=== PATIENT | female | born 1950 ===

== ENCOUNTER → 2021-10-30 00:28 | Outpatient (CLI) | payer MEDICARE, MEDICAID, SELFPAY ==
--- OUTSIDE RECORDS SUMMARY | 2021-10-30 00:30 | XMS_ITS | Encounter Summary ---
:1950 Author Organization [facility] Address [address] [place] [address] Care Team Providers Name Role Phone Nancy Clemente APRN Primary Care Provider Encounter Details Date Type Department Care Team Description 07/22/2021 TH Visit Neurosurgery at [facility] Get Lindo, Median nerve (TeleHealth) [facility] [place] neuropathy, Blanche [facility] [place] [address] mcginnis [phone] [place]ERY [place] [address] Social History Tobacco Use Types Packs/Day Years Used Date Former Smoker 1.5 30 Quit: 2004 Smokeless Tobacco: Never Used Alcohol Use Standard Drinks/Week Comments Yes 3 (1 standard drink = 0.6 oz pure alcoho l) 3 beers a week Alcohol Habits Answer Date Recorded How often do you have a drink containing alcohol? Not asked How many drinks containing alcohol do you have on a Not aske d typical day when you are drinking? How often do you have six or more drinks on one Not asked occasion? Comment: 3 beers a week 06/03/2021 Sex Assigned at Date Recorded Not on file documented as of this encounter Progress Notes Get Lindo APRN - 07/22/2021 11:00 AM EDT Name: Selin Dong : 1950 PCP: Nancy Clemente APRN REF: Nancy Clemente Date of Service: 07/22/2021 Telephone Office Visit CHIEF COMPLAINT: BUE R>L paraesthesias HISTORY: Selin Dong is a 70yof that presents today for follow up regarding her EM[facility] results. [facility] was [facility]. I spoke with Ms. Dong over the phone today to discuss the results of her EMG. Symptoms appear mostconsistent with carpal tunnel syndrome. She denies new symptoms from previous visit. IMAGING & OTHER RESULTS: EMG 07/10/21 IMPRESSION: MILDLY ABNORMAL STUDY. 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 NO EVIDENCE OF RIGHT CERVICAL RADICULOPATHY. NOTE: THERE IS ELECTRODIAGNOSTIC EVIDENCE OF [place] ANASTOMOSIS BILATERALLY. ASSESSMENT: This is a 70yof that presents with b/l arms numbness and sensation of falling asleep at nighttime. She has been using pregabalin which has helped with some of the pain but it is still occurring every night. 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 PLAN: I recommend structured bilateral wrists braces for bedtime. She should try this for 2-3 weeks every night and if she is still experiencing discomfort I would recommend either a pain clinic or orthopedic to trial steroid injections. Patient verbally consents to this telephone visit and understands that this visit may be billed, similar to a clinic office visit. I provided care to the patient today via telephone call. The total time associated with this visit was 20 minutes. Get Lindo APRN Nurse Practitioner [place] [address] documented in this encounter Plan of Treatment Not on filedocumented as of this encounter Visit Diagnoses Diagnosis Median nerve neuropathy, unspecified lat erality documented in this encounter Care Teams Basket Filler Relationship Specialty Start Date End Date Nancy Clemente APRN PCP - General Family Medicine 05/15/21 [address] [place] [address] documented as of this encounter
--- OUTSIDE RECORDS SUMMARY | 2021-10-30 00:30 | XMS_ITS | Encounter Summary ---
:1950 Author Organization [facility] [place] [address] Care Team Providers Name Role Phone Nancy Clemente APRN Primary Care Provider Encounter Details Date Type Department Care Team Description 07/14/2021 External Results Neurodiagnostic at [facility] Jason Dupree [facility] [place] [address] [facility] [phone] [place] [address] (Wo rk) Social History Tobacco Use Types Packs/Day Years [...] on file documented as of this encounter Plan of Treatment Not on filedocumented as of this encounter Procedures Procedure Name Priority Date/Time Associated Diagnosis Comme nts EMG WITH F-WAVE Routine 07/10/2021 documented in this encounter Results EMG WITH F-WAVE (07/10/2021) Narrative This result has an attachment that is no t available. Jason Dupree MD NEUROLOGY ORDERABLES documented in this encounter Visit Diagnoses Not on filedocumented in this encounter Care Teams Product Development Relationship Specialty Start Date End Date Nancy Clemente APRN PCP - General Family Medicine 05/15/21 [address] [place] [address] documented as of this encounter
--- OUTSIDE RECORDS SUMMARY | 2021-10-30 00:30 | XMS_ITS | Encounter Summary ---
:1950 Author Organization [facility] [place] [address] Care Team Providers Name Role Phone Nancy Clemente CURRICULUM ADVISORY TEACHER Primary Care Provider Reason for Visit Consultation (Routine) - Closed Specialty Diagnoses / Procedures Referred By Contact Refer red To Contact Neurology Diagnoses Spinal stenosis, cervical region please eval and consider bilateral upper extremity EMG testing Eric Fitzpatrick, [facility] Neurology 3c CURRICULUM ADVISORY TEACHER [address] [address] [place] [address] Referral ID Status Reason Start Date Expiration Date Visits Requ ested Visits Authorized [id number] Closed 05/04/2021 05/04/2022 1 1 Encounter Details Date Type Department Care Team Description 07/10/2021 Office Visit Neurology at [facility] Jason Dupree Right median nerve neuropath y; [facility] MD Javy Median neuropathy, [place] [address] Neurology [phone] [place] [address] (Wo rk) Social History Tobacco Use Types [...] documented as of this encounter Progress Notes Jason Dupree MD - 07/10/2021 2:00 PM EDT Selin Dong is a patient of Nancy Clemente APRN referred by Eric Fitzpatrick APRN for electrodiagnostic studies for bilateral arm numbness and neck pain. Briefly, she returns bilateral nocturnal dysesthesias involving both arms.Not together, but rather one arm and then the other. She has associated neck and bilateral shoulder pain. 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 She cannot move herneck to cause these issues. No b/b or gait issues. On exam she has normal strength bilateral APB, FPL, FDI, EIP, EDC, pronator, wrist flex/ex, biceps, triceps, and deltoid. She has normal 1+ symmetric reflexes throughout and normal tone The sensory exam is not elucidative. She reports normal sensation to LT. She has questionably decreased pinprick in all distal volar digits. Normal at thenar eminence, dorsum, hypothenar, forearm, and arm. At one point she thinks cold sensation is decreased on lateral 4th compared with medial, but then again it is decreased in all distal digits and not reliably. The complete EDX findings will be reported elsewhere (see scanned documents). She has evidence of mild bilateral median neuropathy at the wrist on the basis of slowed sensory CV.Motor studies are normal. Ulnar CMAPs and SNAPs are normal. Needle EMG sampling the R APB, FDI, EDC,biceps, deltoid, and C7 paraspinal musculature are all normal without evidence of neuropathic injury. In summary, there is no EDX evidence of cervical radiculopathy. There is EDX evidence of mild bilateral median neuropathy at the wrist. I recommended she try wrist splints at night bilaterally. She has appointment upcoming with NSG to discuss next steps. Jason Dupree MD 07/10/2021 documented in this encounter Plan of Treatment Scheduled Referrals Name Type Priority Associated Diagnoses Order S chedule Referral to Outpatient Referral Routine Cervical stenosis of Ordered: Neurology spinal canal 06/03/2021 documented as of this encounter Visit Diagnoses Diagnosis Right median nerve neuropathy Median neuropathy, left documented in this encounter Care Teams Floor Scraper Relationship Specialty Start Date End Date Nancy Clemente APRN PCP - General Family Medicine 05/15/21 [address] [place] [address] documented as of this encounter
--- OUTSIDE RECORDS SUMMARY | 2021-10-30 00:30 | XMS_ITS | Encounter Summary ---
:1950 Author Organization [facility] [place] [address] Care Team Providers Name Role Phone Nancy Clemente Marti PROGRAMMER ENGINEERING AND SCIENTIFIC Primary Care Provider Reason for Referral Consultation (Routine) - Closed Specialty Diagnoses / Procedures Referred By Contact Refer red To Contact Neurology Diagnoses Cervical stenosis of spinal canal Get Lindo APRN [facility] [address] [place] [address] [place] [address] Referral ID Status Reason Start Date Expiration Date Visits V isits Requested Authorized [id number] Closed Test Only 06/03/2021 06/03/2022 1 1 Reason for Visit Consultation (Routine) - Authorized Specialty Diagnoses / Procedures Referred By Contact Refer red To Contact Neurosurgery Diagnoses Spinal stenosis, cervical region Eric Fitzpatrick, [facility] PROGRAMMER ENGINEERING AND SCIENTIFIC [address] [address] [place] [address] Referral ID Status Reason Start Expiration Visits Visits Date Date Requested Authorized [id number] Authorized Consult, 05/04/2021 05/04/2022 6 6 [facility] PCP Updated and/or Approved Encounter Details Date Type Department Care Team Description 06/03/2021 Office Visit Neurosurgery at [facility] Get Lindo, Radiculopathy of cervical re gion; [facility] PROGRAMMER ENGINEERING AND SCIENTIFIC Cervical stenosis of spinal [place] [address] [address] [phone] NEUROSURGERY [place], [place] [address] Social History Tobacco Use Types Packs/Day Years [...] on file documented as of this encounter Last Filed Vital Signs Vital Sign Reading Time Taken Comments Blood Pressure 135/57 06/03/2021 10:31 AM EST Pulse 58 06/03/2021 10:31 AM EST Temperature 37.2 ??C (99 ??F) 06/03/2021 10:31 AM EST Respiratory Rate 18 06/03/2021 10:31 AM EST Oxygen Saturation - - Inhaled Oxygen Concentration - - Weight 67.8 kg (149 lb 6.4 oz) 06/03/2021 10:31 AM EST Height 154.9 cm (5' 1) 06/03/2021 10:31 AM EST Body Mass Index 28.23 06/03/2021 10:31 AM EST documented in this encounter Progress Notes Get Lindo APRN - 06/03/2021 11:00 AM EST Section of Neurosurgery Initial Consultation Note 06/03/2021 Eric Fitzpatrick, PROGRAMMER ENGINEERING AND SCIENTIFIC [address] [place] [address] RE: Selin Dong : [address] Fitzpatrick: Thank you for referring your patient Selin Dong to the Neurosurgery Clinic at [facility] for evaluation of chronic neck pain. As you know, Ms. Dong is a pleasant 70 y.o. female who was found to have C5-6 stenosis on workup. Ms. Dong presents today for evaluation of chronic neck pain. She states that the pain originally started 1 year ago after a fall. It had initially improved with PT but then worsen again 4-5 months ago. She has been doing her PT exercises at home which has not improved her symptoms. She was then seenby pain management for JIGNA but was told that it would not be beneficial for her. Currently, for the pain she is taking diclofenac. Her worst symptom is a feeling of falling asleep in R>L arms while she is sleeping that has been waking her up at night. She states that they longest she has been able to sleep is 4 hours and onlybecause of the medication that she was started on. She does not experience the falling asleep during the day but does have an aching pain in her neck and a sharp stabbing pain in her right bicep. 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 She does endorse muscle cramps, mostly in her legs. PAST MEDICAL HISTORY: Past Medical History: Diagnosis Date ??? Hyperlipemia ??? Hyperthyroidism ??? Hypotension PAST SURGICAL HISTORY: Past Surgical History: Procedure Laterality Date ??? LAPAROTOMY ??? SMALL INTESTINE SURGERY 1976 '4ft of small bowel resected for intestinal hernia' SOCIAL HISTORY: Social History Tobacco Use ??? Smoking status: Former Smoker Packs/day: 1.50 Years: 30.00 Pack years: 45.00 Quit date: 2004 Years since quittin.1 ??? Smokeless tobacco: Never Used Vaping Use ??? Vaping Use: Never used Substance Use Topics ??? Alcohol use: Yes Alcohol/week: 3.0 standard drinks Types: 3 Cans of beer per week Comment: 3 beers a week ??? Drug use: Not Currently FAMILY HISTORY: Family History Problem Relation Age of Onset ??? Abdominal Aortic Aneurysm Neg Hx CURRENT MEDICATIONS: ??? aspirin 81 mg Capsule ??? multivit with minerals/lutein (MULTIVITAMIN 50 PLUS ORAL) ??? omega 9-kcb-zye-fish oil (Fish OiL) 120-180-500 mg Capsule ??? calcium-vitamin D3 600 mg-5 mcg (200 unit) Tablet ??? atorvastatin (Lipitor) 40 mg Tablet ??? lisinopriL (Prinivil;Zestril) 10 mg Tablet ??? levothyroxine (Synthroid) 75 mcg Tablet ??? Diclofenac Sodium (VOLTAREN XR) 100 mg Tablet Sustained Release 24 hr ALLERGIES: Allergies Allergen Reactions ??? Cis Free Text Allergy Environmental. REVIEW OF SYSTEMS: see HPI PHYSICAL EXAMINATION: Blood pressure 135/57, pulse 58, temperature 37.2 ??C (99 ??F), temperature source Temporal, resp. rate 18, height 154.9 cm (5' 1), weight 67.8 kg (149 lb 6.4 oz). Awake, alert, and in no acute distress. Speech: Appropriate and fluent; answers questions appropriately. Motor: Normal muscle bulk and tone. STRENGTH R L REFLEXES R L Shoulder abduction 5 5 Biceps 2 2 Elbow flexion 5 5 Brachiorad. 2 2 Elbow extension 5 5 Triceps 2 2 Wrist dorsiflexion 5 5 Finger abduction 5 5 Patella 2 2 Hospitality Manager 5 5 Ankle 2 2 Hip flexion 5 5 Knee flexion 5 5 PATHOLOGIC Knee extension 5 5 REFLEXES R L Ankle dorsiflexion 5 5 Wright's Absent Absent Ankle plantarflexion 5 5 Extensor hallucis 5 5 Clonus None None Sensation: Grossly intact to light touch in all four extremities. Cerebellar: No dysmetria with finger to nose testing bilaterally. Gait: Independent and stable. RADIOGRAPHIC STUDIES: Cervical MRI 03/26/21 IMPRESSION Multilevel degenerative disc and facet arthropathy changes, most pronounced at C5-C6 level, as detailed above. IMPRESSION AND PLAN: Ms. Dong is a 70 y.o. female presenting with neck pain. I reviewed the imaging studies with her. Jigar concerned that she is having some myelopathy due to the muscle spasms that she is experiencing inher legs. I would like to have her get an EMG completed. Once that is resulted she will likely need to meet with a surgeon to discuss surgical options Based on my findings I suggest the following course of action: 1. EMG 2. F/u with me after EMG completed. It was my pleasure to have seen and examined Ms. Dong. In our visit today, we discussed the patient's current condition, the natural course history without treatment and various interventional options. I will be sure to keep you updated after Ms. Dong returns here for further follow-up. Thank you again for your referral. Please don't hesitate to contact me if you have any further questions. Sincerely, Get Lindo APRN Nurse Practitioner [facility] Department of Neurosurgery [address] [place] [id number] CC: Nancy Clemente APRN CC: Eric Fitzpatrick APRN [address] [place] [address] This message is confidential, intended only for the named recipient(s) and may contain information that is privileged or exempt from disclosure under applicable law. If you are not the intended recipient(s), you are notified that the dissemination, distribution or copying of this information is strictly prohibited. If you received this message in error, please notify the sender then delete this message. documented in this encounter Plan of Treatment Scheduled Referrals Name Type Priority Associated Diagnoses Order S chedule Referral to Outpatient Referral Routine Cervical stenosis of Ordered: Neurology spinal canal 06/03/2021 documented as of this encounter Visit Diagnoses Diagnosis Radiculopathy of cervical region Brachial neuritis or radiculitis nos Cervical stenosis of spinal canal Spinal stenosis in cervical region documented in this encounter Care Teams Supervisor Grounds Relationship Specialty Start Date End Date Nancy Clemente APRN PCP - General Family Medicine 05/15/21 [address] [place], [place] [id number] documented as of this encounter
--- OUTSIDE RECORDS SUMMARY | 2021-10-30 00:30 | XMS_ITS | Clinical Summary ---
:1950 Author Organization [facility] Address [facility] [address] [place] [address] Care Team Providers Name Role Phone Nancy Clemente APRN Primary Care Provider Allergies Active Allergy Reactions Severity Noted Date Comments Cis Free Text Allergy Enviro nmental. Prednisone 07/22/2021 Other reaction( s): Abdominal Pain Medications Medication Sig Dispensed Refills Start Date End Date Status lisinopriL Take 10 mg by mouth 0 Active (Prinivil;Zestril) 10 daily. mg Tablet levothyroxine Take 75 mcg by 0 A ctive (Synthroid) 75 mcg mouth daily. Tablet Diclofenac Sodium Take by mouth. 0 Active (VOLTAREN XR) 100 mg Tablet Sustained Release 24 hr aspirin 81 mg Capsule every 24 hours. 0 05/20/2020 Active multivit with every 24 hours. 0 Active minerals/lutein (MULTIVITAMIN 50 PLUS ORAL) omega 2-utx-ajg-fish Fish Oil 500 mg capsule 0 Active oil (Fish OiL) Take by oral route. 120-180-500 mg Capsule calcium-vitamin D3 1/2 tablet with 0 Active 600 mg-5 mcg (200 food unit) Tablet atorvastatin every 24 hours. 0 05/20/2020 Active (Lipitor) 40 mg Tablet pregabalin (LYRICA) Take 100 mg by 0 06/30/2021 Active 100 mg Capsule mouth daily. multivit with multivitamin 0 Act beth minerals/lutein (MULTIVITAMIN 50 PLUS ORAL) Family History Medical History Relation Comments Abdominal Aortic Aneurysm Neg Hx Social History Tobacco Use Types Packs/Day Years [...] Assigned at Date Recorded Not on file Last Filed Vital Signs Vital Sign Reading Time Taken Comments Blood Pressure 135/57 06/03/2021 10:31 AM EST Pulse 58 06/03/2021 10:31 AM EST Temperature 37.2 ??C (99 ??F) 06/03/2021 10:31 AM EST Respiratory Rate 18 06/03/2021 10:31 AM EST Oxygen Saturation 98% 05/16/2020 1:56 PM EST Inhaled Oxygen Concentration - - Weight 67.8 kg (149 lb 6.4 oz) 06/03/2021 10:31 AM EST Height 154.9 cm (5' 1) 06/03/2021 10:31 AM EST Body Mass Index 28.23 06/03/2021 10:31 AM EST Plan of Treatment Health Maintenance Due Date Last Done Comments Covid-19 Vaccine (#1) 1957 Hepatitis C Screening 1970 Tdap adult 12/02/1971 Tetanus vaccine 12/02/1971 Breast Cancer Share Decision Needed 1992 Diabetes Screening (HgbA1C or Glucose) 1992 Colonoscopy 1997 Zoster vaccine (1 of 2) 2002 Advance Directive 12/02/2007 Bone Density Scan 2017 Pneumoccocal Vaccine: 65+ (1 - PCV) 2017 Influenza (Flu) vaccine (1 of 1 - 12/03/2021 Influenza standard series) Breast Cancer screening 12/11/2022 12/11/2020, 12/11/2020 Insurance Payer Benefit Plan / Subscriber ID Effective Dates Phone Addre ss Type Group MEDICARE MEDICARE PART [id number] 2020-Prese [phone] [facility] [place] [address] [place] [id number] 2021-Prese [phone] [address] [place] [address] Care Teams Manager Policy Relationship Specialty Start Date End Date Nancy Clemente, BACKER UP PCP - General Family Medicine 05/15/21 [address] [place] [address]
--- OUTSIDE RECORDS SUMMARY | 2021-10-30 00:30 | XMS_ITS | Encounter Summary ---
:1950 Author Organization [facility] [place] [address] Care Team Providers Name Role Phone Barbara Roger APRN Primary Care Provider Encounter Details Date Type Department Care Team Description 03/27/2021 Interpretation Only [address] Del Singleton APRN [place], [place] [address] [address] [place], [place] [phone] [id number] Social History Tobacco Use Types Packs/Day Years Used Date Former Smoker 1.5 30 Quit: 2004 Smokeless Tobacco: Never Used Alcohol Use Standard Drinks/Week Comments Yes 3 (1 standard drink = 0.6 oz pure alcoho l) Sex Assigned at Date Recorded Not on file documented as of this encounter Plan of Treatment Not on filedocumented as of this encounter Procedures Procedure Name Priority Date/Time Associated Diagnosis Comme nts XR CERVICAL SPINE 4 Routine 03/27/2021 9:32 AM Re sults for this OR 5 VIEWS EST procedure are i n the results section. documented in this encounter Results XR Cervical Spine 4 or 5 Views (03/27/2021 9:32 AM EST) P athologist Signature PT CLASS O RAD ADMITDTTM RAD PT RAD INFO [id number]^G RAD OYETTE^SUJIT RINE EXAM DESC [id number]^XR RAD C-SPINE ROUTINE^RIS Anatomical Region Laterality Modality L-spine N/A Radiographic Imaging Specimen (Source) Anatomical Location Collection Method / Collectio n Time Received Time / Laterality Volume Impressions 03/27/2021 9:37 AM EST Similar discovertebral degeneration at C5-C6 and C6-C7. Thank you for letting us participate in the care of this patient. ??If you are a health care provider and have any questi ons regarding this report, please contact the number below. ??For patients who have questions please contact the health body care manager that requested your imaging first. ? Narrative 03/27/2021 9:37 AM EST EXAMINATION: XR C-SPINE ROUTINE CLINICAL HISTORY: jenny arm pain/numbness TECHNIQUE: 4 views of the cervical spine COMPARISON: April 2020 FINDINGS: Intact vertebral body heights. No prever tebral soft tissue swelling. Similar slight retrolisthesis of C5-C6. Similar partial disc height loss at C5-C6 and C6-C7. Right C5-C6 and left C5-C6 and C6 -C7 bony foraminal narrowing with uncovertebral hypertrophy. Similar multi level bilateral facet degeneration. Procedure Note Renzo Jeong MD - 03/27/2021Formatting o f this note might be different from the original. EXAMINATION: XR C-SPINE ROUTINE CLINICAL HISTORY: jenny arm pain/numbness TECHNIQUE: 4 views of the cervical spine COMPARISON: April 2020 FINDINGS: Intact vertebral body heights. No prever tebral soft tissue swelling. Similar slight retrolisthesis of C5-C6. Similar partial disc height loss at C5-C6 and C6-C7. Right C5-C6 and left C5-C6 and C6 -C7 bony foraminal narrowing with uncovertebral hypertrophy. Similar multi level bilateral facet degeneration. IMPRESSION Similar discovertebral degeneration at C 5-C6 and C6-C7. Thank you for letting us participate in the care of this patient. If you are a health care provider and have any questi ons regarding this report, please contact the number below. For patients w ho have questions please contact the health body care manager that requested your imaging first. Areli Betancourt APRN IMG DX ORDERABLES documented in this encounter Visit Diagnoses Not on filedocumented in this encounter Care Teams Commissioner Of Internal Revenue Relationship Specialty Start Date End Date Barbara Roger APRN PCP - General Family Medicine 04/25/20 05/14/21 [place] [place] [address] documented as of this encounter
--- OUTSIDE RECORDS SUMMARY | 2021-10-30 00:30 | XMS_ITS | Encounter Summary ---
:1950 [place] [address] Care Team Providers Name Role Phone Bryn, Nancy Marti EAGLE Primary Care Provider Encounter Details Date Type Department Care Team Description 06/03/2021 Telephone Neurosurgery at [facility] Get Lindo HIDE CURER [facility] [place] [address] NEUROSURGERY [phone] [place], [place] [address] (Wo rk) Social History Tobacco Use Types [...] on file documented as of this encounter Miscellaneous Notes Telephone Encounter - Andree Hilliard - 07/06/2021 5:12 PM EDT Called pt scheduled TOV for 07/22 with CS EMG scheduled for 07/10. Telephone Encounter - Andree Hilliard - 06/03/2021 1:37 PM EST Patient needs f/u appointment(s): With [facility] on/around Next Available TOV, f/u cervical spinal stenosis, EMG prior Telephone Encounter - Andree Hilliard - 06/03/2021 1:37 PM EST Selin Dong - 06/03/21 Get Lindo APRN Sent: TueJune 03, 2021 12:05 PM To: [facility] Neurosurgery [place] ?? Message Ms. Dong needs TOV with me AFTER EMG is completed and results are back. Thank you documented in this encounter Plan of Treatment Not on filedocumented as of this encounter Visit Diagnoses Not on filedocumented in this encounter Care Teams Sales Effectiveness Manager Relationship Specialty Start Date End Date Nancy Clemente APRN PCP - General Family Medicine 05/15/21 [address] [place] [address] documented as of this encounter
--- OUTSIDE RECORDS SUMMARY | 2021-10-30 00:31 | XMS_ITS | Encounter Summary ---
:1950 Author Organization [facility] [place] [address] Care Team Providers Name Role Phone Barbara Roger APRN Primary Care Provider Encounter Details Date Type Department Care Team Description 03/26/2021 Interpretation Only [address] Del Singleton APRN [place], [place] [address] [address] [place], [place] [phone] [id number] Social History Tobacco Use Types Packs/Day Years [...] Name Priority Date/Time Associated Diagnosis Comme nts MRI CERVICAL SPINE Routine 03/26/2021 12:37 PM Re sults for this WO CONTRAST EST procedure are i n the results section. documented in this encounter Results MRI Cervical Spine wo Contrast (Generic) (03/26/2021 12:37 PM EST) P athologist Signature PT CLASS O RAD ADMITDTTM RAD PT ROSA PANTOJA INFO [id number]^G DH RAD OYETTE^SUJIT RINE EXAM DESC MRCSPWO^MRI RAD CSPINE W/O CNTRS^RIS Anatomical Region Laterality Modality C-spine Magnetic Resonance Specimen (Source) Anatomical Location Collection Method / Collectio n Time Received Time / Laterality Volume Impressions 03/26/2021 2:28 PM EST Multilevel degenerative disc and facet arthropathy changes, most pronounced at C5-C6 level, as detailed above. Thank you for letting us participate in the care of this patient. ??If you are a health care provider and have any questi ons regarding this report, please contact the number below. ??For patients who have questions please contact the health transitional care manager that requested your imaging first. ? Electronically signed by: Kamar abdul MD, [facility] ([phone]), at 03/26/2021 2:28 PM Narrative 03/26/2021 2:28 PM EST EXAMINATION: MRI CSPINE W/O CNTRS CLINICAL HISTORY: 70yo female with billa teral numbness/tingling/pain in arms when sleeping. X-rays on 03/27. Eval for disc changes that would cause sxs.. Cervical spondylosis. TECHNIQUE: MRI of the cervical spine performed with out intravenous contrast administration. COMPARISON: None FINDINGS: Multilevel degenerative loss of vertebra l disc water signal. Loss of intervertebral disc height at C5-C6 and C6-C7 levels. The spinal cord demonstrates normal course, caliber, and signal characteristics. Individual levels: C2-C3: No spinal canal or neuroforaminal narrowing. C3-C4: Disc osteophyte complex formation with facet hypertrophy results in mild spinal canal stenosis and mild degree of bilateral neuroforaminal narrowing, slightly more pronounced on the left. C4-C5: Minimal, grade 1 anterolisthesis of C4 on C5. No spinal canal stenosis. Asymmetric uncovertebral osteophytosis o n the left resulting in moderate to severe foraminal narrowing. The right ne ural foramen is patent. C5-C6: Disc osteophyte complex formation and ligamentum flavum buckling results in severe spinal canal narrowing with co mplete effacement of CSF, but no deformity or signal alteration in the sp inal cord. Severe right, and moderate to severe left neuroforaminal stenosis is n oted. C6-C7: Disc calcified complex formation and ligamentum flavum buckling result in moderate degree of spinal canal stenosis with near complete effacement of CSF. Mild to moderate bilateral neuroforamina l narrowing is noted. Procedure Note Kamar Finch MD - 03/26/2021For matting of this note might be different from the original. EXAMINATION: MRI CSPINE W/O CNTRS CLINICAL HISTORY: 70yo female with billa teral numbness/tingling/pain in arms when sleeping. X-rays on 03/27. Eval for disc changes that would cause sxs.. Cervical spondylosis. TECHNIQUE: MRI of the cervical spine performed with out intravenous contrast administration. COMPARISON: None FINDINGS: Multilevel degenerative loss of vertebra l disc water signal. Loss of intervertebral disc height at C5-C6 and C6-C7 levels. The spinal cord demonstrates normal course, caliber, and signal characteristics. Individual levels: C2-C3: No spinal canal or neuroforaminal narrowing. C3-C4: Disc osteophyte complex formation with facet hypertrophy results in mild spinal canal stenosis and mild degree of bilateral neuroforaminal narrowing, slightly more pronounced on the left. C4-C5: Minimal, grade 1 anterolisthesis of C4 on C5. No spinal canal stenosis. Asymmetric uncovertebral osteophytosis o n the left resulting in moderate to severe foraminal narrowing. The right ne ural foramen is patent. C5-C6: Disc osteophyte complex formation and ligamentum flavum buckling results in severe spinal canal narrowing with co mplete effacement of CSF, but no deformity or signal alteration in the sp inal cord. Severe right, and moderate to severe left neuroforaminal stenosis is n oted. C6-C7: Disc calcified complex formation and ligamentum flavum buckling result in moderate degree of spinal canal stenosis with near complete effacement of CSF. Mild to moderate bilateral neuroforamina l narrowing is noted. IMPRESSION Multilevel degenerative disc and facet a rthropathy changes, most pronounced at C5-C6 level, as detailed above. Thank you for letting us participate in the care of this patient. If you are a health care provider and have any questi ons regarding this report, please contact the number below. For patients w ho have questions please contact the health transitional care manager that requested your imaging first. Areli Betancourt APRN [employer] MRI ORDERABLES documented in this encounter Visit Diagnoses Not on filedocumented in this encounter Care Teams Supervisor Record Press Relationship Specialty Start Date End Date Barbara Roger APRN PCP - General Family Medicine 04/25/20 05/14/[address] [place] [address] documented as of this encounter
--- OUTSIDE RECORDS SUMMARY | 2021-10-30 00:31 | XMS_ITS | Clinical Summary ---
:1950 Author Organization [facility] Address [address] [place] [address] Care Team Providers Name Role Phone Danyelle Barahona Justo MANAGER OF EXHIBITIONS AND COLLECTIONS Primary Care Provider Allergies No known active allergies Medications Medication Sig Dispensed Refills Start Date End Date Status levothyroxine Take 75 mcg by 0 A ctive (SYNTHROID) 75 mcg mouth daily. tablet lovastatin (MEVACOR) 40 Take 40 mg by 0 Active mg tablet mouth daily. Diclofenac Sodium 100 mg Take 100 mg by 0 Active tablet extended release mouth daily as 24 hr needed. ketOROLAC tromethamine Place 1 Drop 5 mL 2 03/16/2017 Active (ACULAR LS) 0.4 % drops into the right eye 4 times daily. prednisoLONE (PRED Place 1 Drop 1 Bottle 2 03/19/2017 Active FORTE) 1 % ophthalmic into the right suspension eye 4 times daily. Additional Information Patient taking differently: 1 Drop right eye 2 TIMES DAILY, Reported on 04/07/2017 moxifloxacin (VIGAMOX) 0.5 % Place 1 Drop into the 3 mL 1 03/17/2017 Active ophthalmic solution right eye 4 times daily. ketOROLAC tromethamine (ACULAR Place 1 Drop into the 5 mL 0 03/30/2017 Active LS) 0.4 % dropsIndications: left eye 4 times daily. Combined forms of age-related cataract of left eye prednisoLONE (PRED FORTE) 1 % Place 1 Drop into the 10 mL 2 03/24/2017 Active ophthalmic left eye 4 times daily. suspensionIndications: Combined forms of age-related cataract of left eye Active Problems No known active problems Surgical History Surgery Date Site/Laterality Comments CATARACT REMOVAL WITH IMPLANT 03/18/[address] Ole Blas CATARACT REMOVAL WITH IMPLANT 04/01/[address] Ole Blas Medical History Medical History Date Comments Hyperlipidemia Thyroid disease hypo Family History Medical History Relation Name Comments Cataract Brother Diabetes Brother Retinitis Pigmentosa Maternal Aunt Diabetes Mother Retinitis Pigmentosa Mother Diabetes Sister Glaucoma Neg Hx Macular Degeneration Neg Hx Relation Name Status Comments Brother Maternal Aunt Mother Sister Social History Tobacco Use Types Packs/Day Years Used Date Former Smoker Smokeless Tobacco: Never Used Alcohol Use Standard Drinks/Week Comments Yes 0 (1 standard drink = 0.6 oz pure alcoho l) on occ Alcohol Habits Answer Date Recorded How often do you have a drink containing alcohol? Not asked How many drinks containing alcohol do you have on a typical Not asked day when you are drinking? How often do you have six or more drinks on one occasion? No t asked Comment: on occ 02/10/2017 Sex Assigned at Date Recorded Not on file Plan of Treatment Health Maintenance Due Date Last Done Comments Fall Risk Screening 2017 Care Teams Concrete Vibrator Operator Relationship Specialty Start Date End Date Danyelle Barahona, MANAGER OF EXHIBITIONS AND COLLECTIONS PCP - General 02/09/[address] [place] [phone]
--- OUTSIDE RECORDS SUMMARY | 2021-10-30 00:31 | XMS_ITS | Encounter Summary ---
:1950 Author Organization [facility] Address [address] [place] [address] Care Team Providers Name Role Phone Danyelle Barahona CHAUFFEUR MOTORBUS Primary Care Provider Reason for Visit Reason Comments Other OCB read only Encounter Details Date Type Department Care Team Description 03/23/2017 Documentation Visit [facility] Ahmet Blas Combined forms of Ophthalmology - MD Willy age-related [place] [address] [employer] cataract of left [address] [employer] [place] eye (Primary Dx) [address] [place], [place] [phone] Social History Tobacco Use Types Packs/Day Years Used Date Former Smoker Smokeless Tobacco: Never Used Alcohol Use Standard Drinks/Week Comments Yes 0 (1 standard drink = 0.6 oz pure alcoho l) on [facility] Alcohol Habits Answer Date Recorded How often [...] on file documented as of this encounter Functional Status Functional Status Response Date of Assessment Because of a physical, mental, or emotional condition, No 03/18/2017 does this person have difficulty doing errands alone such as visiting a doctor's office or shopping? Cognitive Status Response Date of Assessment Because of a physical, mental, or emotional condition, No 03/18/2017 does this person have serious difficulty concentrating, remembering, or making decisions? documented as of this encounter Progress Notes Marla Landry - 03/23/2017 1039 EST Optical Coherence Biometry calculations read and lens chosen for cataract surgery. documented in this encounter Plan of Treatment Not on filedocumented as of this encounter Visit Diagnoses Diagnosis Combined forms of age-related cataract o f left eye - Primary Other and combined forms of senile catar act documented in this encounter Care Teams Bun Panner Relationship Specialty Start Date End Date Danyelle Barahona FNP PCP - General 02/09/[address] [place] [phone] documented as of this encounter
--- OUTSIDE RECORDS SUMMARY | 2021-10-30 00:31 | XMS_ITS | Encounter Summary ---
:1950 Author Organization Health system Address [address] [place] [address] Care Team Providers Name Role Phone Danyelle Barahona PARENT TRAINER Primary Care Provider Reason for Visit Reason Onset Date Comments Post-OP Follow Up 03/24/2017 POW#1 s/p CEwPCIOL r ight eye Encounter Details Date Type Department Care Team Description 03/24/[address] [facility] Yokasta Blas MD Ophthalmology - [place] in [address] [place] [address] [address] [place] [address] [address], [place] [id number] [phone] Social History Tobacco Use Types Packs/Day Years Used Date Former Smoker Smokeless Tobacco: Never Used Alcohol Use Standard Drinks/Week Comments Yes 0 (1 standard drink = 0.6 oz pure alcoho l) on [facility] Alcohol Habits Answer Date Recorded How [...] a physical, mental, or emotional condition, No 03/24/2017 does this person have difficulty doing errands alone such as visiting a doctor's office or shopping? Cognitive Status Response Date of Assessment Because of a physical, mental, or emotional condition, No 03/24/2017 does this person have serious difficulty concentrating, remembering, or making decisions? documented as of this encounter Patient Instructions Patient InstructionsAhmet Blas MD - 03/24/2017 8:30 EST Surgery scheduled for 04/01, Left eye Start using Ketorolac (sam cap) 2 days before your surgery four times daily in the Left eye. (Breakfast, Lunch, Dinner, Bedtime) Friday 03/30 & 03/31. (sam cap) Ketorolac 1 drop 4x daily for 2 days breakfast lunch dinner bedtime Day 1: 03/30 Day 2: 03/31 documented in this encounter Ordered Prescriptions Prescription Sig Dispensed Refills Start Date End Date prednisoLONE (PRED FORTE) 1 Place 1 Drop into 10 mL 2 1 05/25/2016 % ophthalmic the left eye 4 times suspensionIndications: daily. Combined forms of age-related cataract of left eye ketOROLAC tromethamine Place 1 Drop into 5 mL 0 2016 (ACULAR LS) 0.4 % the left eye 4 times dropsIndications: Combined daily. forms of age-related cataract of left eye documented in this encounter Progress Notes Ahmet Blas MD - 03/24/2017 0819 EST Chief Complaint: Pseudophakia, Cataract Post-Op Week 1, right eye, HPI The patient is a 66 y.o. female, POW #1 s/p CE/PCIOL, right eye. Patient denies eye pain and has used drops as instructed. Location: Pain: 0 - No pain Quality: Severity: Duration: Timing: Lasts: Context: pt here for POW#1 s/p CEwPCIOL right eye, doing well, no pain, no new floaters or flashes. Modifying factors: using drops as directed Associated Signs & Symptoms: Visual Fluctuations: None Attestation: Base Eye Exam Visual Acuity (Snellen - Linear) Right Left Dist sc 20/20 Tonometry (Applanation, 8:29) Right Left Pressure 14 Neuro/Psych Oriented x3: Yes Mood/Affect: Normal Slit Lamp and Fundus Exam Slit Lamp Exam Right Left Lids/Lashes Normal Normal Conjunctiva/Sclera White and quiet White and quiet Cornea incisions sealed, LRI incisions superior and inferior Clear Anterior Chamber deep, trace+ Cell Deep and quiet Iris Round and reactive Round and reactive Lens Posterior chamber intraocular lens 1-2+ Nuclear sclerosis, 2+ Cortical cataract Fundus Exam Right Left Disc clear view to posterior pole Refraction Manifest Refraction (Auto) Sphere Cylinder [place] Dist Right -0.25 +0.75 010 20/20 Left IMPRESSION & PLAN: POW #1 s/p CE/PCIOL, right eye (03/18/17) -patient is doing well -D/C Ofloxacin -Continue ketorolac QID until bottle runs out -Taper PF TID X 1 week, BID X 1 week (according to drop schedule given) -Warnings and precautions discussed Cataract, left eye Surgery scheduled for 1 week. Eye drops ordered, consent form signed. I have reviewed the patient's past medical, family, social and surgical history. I have also reviewed the patient's medications, allergies, and problem list. I performed my own HPI and have reviewed the tech's ROS as well. I personally completed this exam myself. Ahmet Blas MD documented in this encounter Plan of Treatment Not on filedocumented as of this encounter Visit Diagnoses Diagnosis S/P cataract extraction, right - Primary Combined forms of age-related cataract o f left eye Other and combined forms of senile catar act documented in this encounter Eye Exam Visual Acuity (Snellen - Linear) Right eye Left eye Dist sc 20/20 Tonometry (Applanation, 8:29) Right eye Left eye Pressure 14 Neuro/Psych Oriented x3: Yes Mood/Affect: Normal Slit Lamp Exam Right eye Left eye Lids/Lashes Normal Normal Conjunctiva/Sclera White and quiet White and quiet Cornea incisions sealed, LRI incisions Clear superior and inferior Anterior Chamber deep, trace+ Cell Deep and quiet Iris Round and reactive Round and reactive Lens Posterior chamber intraocular lens 1-2+ Nuclear sclerosis, 2+ Cortical cataract Fundus Exam Right eye Left eye Disc clear view to posterior pole Manifest Refraction (Auto) Sphere Cylinder [place] Dist [place] Right eye -0.25 +0.75 010 20/20 Left eye Care Teams Dye Penetrant Testing Technician Relationship Specialty Start Date End Date Danyelle Barahona, CHARLI PCP - General 02/09/[address] [place] [phone] documented as of this encounter
--- OUTSIDE RECORDS SUMMARY | 2021-10-30 00:31 | XMS_ITS | Encounter Summary ---
:1950 Author Organization [facility] Address [facility] [place] [address] Care Team Providers Name Role Phone Barbara Roger APRN Primary Care Provider Reason for Visit Reason Comments Aneurysm abdominal Consultation (Routine) - Closed Specialty Diagnoses / Procedures Referred By Contact Refer red To Contact Vascular Surgery Diagnoses Abdominal aortic aneurysm, without rupture Barbara Roger APRN [facility] Vascular Surg [address]v [address] [place], [place] [address] [place] [address] Phone: Referral ID Status Reason Start Date Expiration Date Visits V isits Requested Authorized [id number] Closed Consult, Test 04/25/2020 04/25/2021 [facility] PCP Updated and/or Approved Encounter Details Date Type Department Care Team Description 05/16/2020 Office Visit Vascular Surgery at [place], Elenita Palafox, AAA (abdominal aortic [facility] MD aneurysm) without [facility] [address] [place] [address] [place] [address] [phone] Social History Tobacco Use Types Packs/Day Years Used Date Former Smoker 1.5 30 Quit: 2004 Smokeless Tobacco: Never Used Alcohol Use Standard Drinks/Week Comments Yes 3 (1 standard drink = 0.6 oz pure alcoho l) Sex Assigned at Date Recorded Not on file documented as of this encounter Last Filed Vital Signs Vital Sign Reading Time Taken Comments Blood Pressure 118/59 05/16/2020 1:56 PM right arm: le ft arm: EST 105/65 Pulse 57 05/16/2020 1:56 PM EST Temperature - - Respiratory Rate - - Oxygen Saturation 98% 05/16/2020 1:56 PM EST Inhaled Oxygen - - Concentration Weight 64.4 kg (142 lb) 05/16/2020 1:56 PM EST Height 154.9 cm (5' 1) 05/16/2020 1:56 PM EST Body Mass Index 26.83 05/16/2020 1:56 PM EST documented in this encounter Progress Notes Elenita Vargas MD - 05/16/2020 2:30 PM EST Images from the original note were not included. Formerly [facility] [place] [address] OUTPATIENT VASCULAR SURGERY INITIAL CONSULT SERVICE DATE: 05/16/2020 SERVICE TIME: 2:36 PM PRIMARY CARE PHYSICIAN: Barbara Roger APRN REFERRING PROVIDER: [place] [address] Consult requested for an opinion regarding the evaluation and treatment of the above. My final impression and recommendations will be communicated back to the requesting physician by way of the shared medical record or letter via US mail. Subjective CHIEF COMPLAINT/HISTORY OF PRESENT ILLNESS: Chief Complaint: AAA History of Present Illness: Selin Dong is a 69 y.o. female referred for an opinion regarding management of incidental finding of small AAA. Patient had back pain following a fall in the end of April and underwent a CT scan. During this time she had an incidental finding of a small AAA. She denies any abdominal or back pain. Patient was unaware of this diagnosis prior to this. She denies any prior family history of aneurysm,dissection, or unexplained sudden . She is a former smoker. She quit 15 years ago, however at that time she was smoking 1 to 2 packs/day x 30 years. She has a prior history of abdominal surgery [id number] secondary to a intestinal hernia.. She reports that she had 4 feet of bowel resected via a midline laparotomy. She is not taking an aspirin, and is taking fluvastatin. PAST MEDICAL/SURGICAL/FAMILY/SOCIAL HISTORY Past Medical History: Diagnosis Date ??? Hyperlipemia ??? Hyperthyroidism ??? Hypotension Past Surgical History: Procedure Laterality Date ??? LAPAROTOMY ??? SMALL INTESTINE SURGERY 1976 '4ft of small bowel resected for intestinal hernia' Family History Problem Relation Age of Onset ??? Abdominal Aortic Aneurysm Neg Hx Social History Tobacco Use ??? Smoking status: Former Smoker Packs/day: 1.50 Years: 30.00 Pack years: 45.00 Quit date: 2004 Years since quittin.1 ??? Smokeless tobacco: Never Used Substance Use Topics ??? Alcohol use: Yes Alcohol/week: 3.0 standard drinks Types: 3 Cans of beer per week ??? Drug use: Not on file Current Outpatient Medications Medication Sig Dispense Refill ??? lisinopriL (Prinivil;Zestril) 10 mg Tablet Take 10 mg by mouth daily. ??? levothyroxine (Synthroid) 75 mcg Tablet Take 75 mcg by mouth daily. ??? Diclofenac Sodium (VOLTAREN XR) 100 mg Tablet Sustained Release 24 hr Take by mouth. ??? fluvastatin (LESCOL) 40 mg capsule No current facility-administered medications for this visit. Allergies Allergen Reactions ??? Cis Free Text Allergy Environmental. COMPLETE REVIEW OF SYSTEMS GENERAL: No weight loss, malaise or fevers. HEENT: Negative for frequent or significant headaches NECK: Negative for pain and significant neck swelling RESPIRATORY: Negative for cough, wheezing or shortness of breath. CARDIOVASCULAR: Negative for chest pain, or palpitations. GI: Negative for abdominal discomfort, change in bowel habits, hematochezia, melena, nausea, vomiting : No history of dysuria, negative for CKD or ESRD Endo: No hx of DM MUSCULOSKELETAL: Negative for new joint pain. SKIN: Negative for new lesions. Chronic skin changes/ulcers PSYCH: Negative HEMATOLOGY/LYMPHOLOGY: Negative for prolonged bleeding, no history of clotting. NEURO: No new symptoms of TIA, amaurosis, weakness, or difficultly speaking All other reviewed and negative other than HPI. Objective PHYSICAL EXAM Physical Exam Performed BP 118/59 (BP Location (NBP): Right arm, Patient Position: Sitting, BP Cuff Sizes: Adult (25-34 cm))Comment: right arm: left arm: 105/65 Pulse 57 Ht 154.9 cm (5' 1) Wt 64.4 kg (142 lb) SpO2 98% BMI 26.83 kg/m?? CONSTITUTIONAL: alert, well developed, well nourished, in no acute distress NEUROLOGIC/PSYCHIATRIC: Grossly normal HEENT: normal atraumatic, no neck masses, normal thyroid, no jvd. LUNGS: Normal chest wall and respirations. Clear to auscultation. HEART: regular rate and rhythm ABDOMEN: soft, non-tender; bowel sounds normal; no masses, no organomegaly INTEGUMENTARY: Wound - none SURGICAL SITES: midline abd incision well healed MUSCULOSKELETAL: negative Pulses/Signals: Brachial Radial Femoral Popliteal Dorsalis Pedis Posterior Tibial Right /05/06 Left /05/06 DATA: Radiology: 04/23/2020 CT a/p 3.7cm infrarenal AAA Smaller bilobed component more proximal infrarenal aorta, max diameter 2.5cm Normal caliber iliac arteries, patent b/l TILA, EIA, IIA I have personally reviewed the following images/data: CT Impression: 69 y.o. female with incidental finding of an asymptomatic 3.7 cm infrarenal AAA. I had along discussion with the patient about the need for surveillance of this aneurysm long-term, howeverat its current size there is a low risk of rupture, and any intervention has more risks at this point then the risk of rupture. Fortunately she has quit smoking. She does not have any known family history. Her blood pressure is well controlled. I discussed with her that we would work on continuing good blood pressure control. I would recommendthat her PCP switch her to a high intensity statin, as there is some data, albeit limited that notesit may decrease the rate of growth of aneurysms. She does have notable vascular disease, may benefitfrom being on a baby aspirin. We will plan to surveilled her with duplex imaging. I discussed with her that in a woman, with otherwise good risk for surgery we would consider treatment of this aneurysmat about 5.0 cm. Plan: - follow-up in 2 years with AAA duplex - recommend PCP to change to high-intensity statin, atorvastatin 40-80mg or rosuvastatin 20-40mg daily - consider starting ASA 81mg daily Thank you for allowing me to participate in the care of your patient. Please do not hesitate to contact me with any questions or concerns. SIGNATURE: Elenita Vargas MD PATIENT NAME: Selin Dong DATE: May 16, 2020 TIME: 2:36 PM documented in this encounter Plan of Treatment Not on filedocumented as of this encounter Visit Diagnoses Diagnosis AAA (abdominal aortic aneurysm) without rupture Abdominal aneurysm without mention of ru pture documented in this encounter Care Teams Supervising Bailiff Relationship Specialty Start Date End Date Barbara Roger APRN PCP - General Family Medicine 04/25/20 05/14/21 [place] [address] documented as of this encounter
--- OUTSIDE RECORDS SUMMARY | 2021-10-30 00:31 | XMS_ITS | Encounter Summary ---
:1950 Author Organization [facility] Address [address] [place] [address] Care Team Providers Name Role Phone Danyelle Barahona LAMINATOR HAND Primary Care Provider Reason for Visit Reason Comments Other OCB read only Encounter Details Date Type Department Care Team Description 03/15/2017 Documentation Visit [facility] Ahmet Blas Combined forms of Ophthalmology - MD Willy age-related [place] [address] cataract of right [address] [place] eye (Primary Dx) [address] [place], [place] [phone] Social History Tobacco Use Types Packs/Day Years Used Date Former Smoker Smokeless Tobacco: Never Used Alcohol Use Standard Drinks/Week Comments Yes 0 (1 standard drink = 0.6 oz pure alcoho l) on [facility] Alcohol Habits Answer Date Recorded How often [...] a physical, mental, or emotional condition, No 02/10/2017 does this person have difficulty doing errands alone such as visiting a doctor's office or shopping? Cognitive Status Response Date of Assessment Because of a physical, mental, or emotional condition, No 02/10/2017 does this person have serious difficulty concentrating, remembering, or making decisions? documented as of this encounter Progress Notes Marla Landry - 03/15/2017 1057 EST Optical Coherence Biometry calculations read and lens chosen for cataract surgery. 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
--- OUTSIDE RECORDS SUMMARY | 2021-10-30 00:31 | XMS_ITS | Encounter Summary ---
:1950 Author Organization [facility] Address [address] [place] [address] Care Team Providers Name Role Phone Danyelle Barahona [facility] Primary Care Provider Reason for Visit Reason Onset Date Comments Pre-op Exam 02/15/2017 Encounter Details Date Type Department Care Team Description 02/15/2017 Office Visit [facility] Yokasta Blas MD Ophthalmology - [place] [address] [place] [address] [address] [place] [address] [address] [place], [place] [address] [phone] Social History Tobacco Use Types Packs/Day Years Used Date Former Smoker Smokeless Tobacco: Never Used Alcohol Use Standard Drinks/Week Comments Yes 0 (1 standard drink = 0.6 oz pure alcoho l) on [facility] Alcohol Habits Answer Date Recorded How [...] making decisions? documented as of this encounter Ordered Prescriptions Prescription Sig Dispensed Refills Start Date End Date prednisoLONE (PRED FORTE) Place 1 Drop into 1 Bottle 2 1 % ophthalmic suspension the right eye 4 times daily. ketOROLAC tromethamine Place 1 Drop into 5 mL 2 2016 (ACULAR LS) 0.4 % drops the right eye 4 times daily. ofloxacin (OCUFLOX) 0.3 % Place 1 Drop into 1 Bottle 2 02/17/2017 ophthalmic solution the right eye 4 times daily. documented in this encounter Progress Notes Arabella Thomas - 02/15/2017 0856 EST BIOMETRY Right eye Left eye Type: Lenstar Lenstar Indication: IOL Calculations IOL Calculations Biometry Completed by Arabella Thomas Original tests to be found in patients shadow chart I was directly supervised by Dr. Ahmet Blas and he was in the suite and immediately available forthe entire time the service was provided. Arabella Thomas 02/15/2017 documented in this encounter Plan of Treatment Not on filedocumented as of this encounter Visit Diagnoses Diagnosis Combined form of senile cataract of righ t eye - Primary Combined form of senile cataract of left eye documented in this encounter Care Teams Mold Loft Worker Relationship Specialty Start Date End Date Danyelle Barahona FNP PCP - General 02/09/[address] [place] [phone] documented as of this encounter
--- OUTSIDE RECORDS SUMMARY | 2021-10-30 00:31 | XMS_ITS | Encounter Summary ---
:1950 Author Organization [facility] [place] [address] Care Team Providers Name Role Phone Barbara Roger APRN Primary Care Provider Encounter Details Date Type Department Care Team Description 01/20/2021 Interpretation Only [facility] BrynNancy milian, [place], [place] [address] [phone] [place], [place] [id number] Social History Tobacco Use Types Packs/Day Years [...] encounter Procedures Procedure Name Priority Date/Time Associated Comments Diagnosis US RETROPERITONEUM STAT 01/20/2021 2:42 Result s for this LIMITED PM EDT procedure are i n the results section. documented in this encounter Results US Retroperitoneum Limited (01/20/2021 2:42 PM EDT) P athologist Signature PT CLASS O RAD ADMITDTTM RAD PT RAD INFO [id number]^P RAD RIESTLEY^AYL A EXAM DESC URETROLIM^US RAD RENAL^RIS Anatomical Region Laterality Modality Abdomen Ultrasound Specimen (Source) Anatomical Location Collection Method / Collectio n Time Received Time / Laterality Volume Impressions 01/20/2021 3:31 PM EDT No evidence of urinary outflow obstruction. Liver steatosis. Thank you for letting us participate in the care of this patient. ??If you are a health care provider and have any questi ons regarding this report, please contact the number below. ??For patients who have questions please contact the health account executive healthcare that requested your imaging first. ? Narrative 01/20/2021 3:31 PM EDT EXAMINATION: US RENAL CLINICAL HISTORY: Decreased glomerular f iltration rate (GFR). 70yo female with significant decline in DFR and increased CR without identifiable cause, R/O renal obstruction. TECHNIQUE: Renal ultrasound. COMPARISON: CT abdomen pelvis dated 2020 FINDINGS: Right and left kidneys measure 9.9, and 10.1 centimeters respectively. No hydronephrosis, renal calcifications, masses, or areas of cortical thinning seen. Tiny scattered parenchymal cysts a re again seen. Urinary bladder is unremarkable. Prevoid volume: 99 ccs Post void volume: 4 ccs Ureteral jets were documented bilaterall y. Increased liver echogenicity consistent with known steatosis. Procedure Note Kamar Finch MD - 01/20/2021For matting of this note might be different from the original. EXAMINATION: US RENAL CLINICAL HISTORY: Decreased glomerular f iltration rate (GFR). 70yo female with significant decline in DFR and increased CR without identifiable cause, R/O renal obstruction. TECHNIQUE: Renal ultrasound. COMPARISON: CT abdomen pelvis dated 2020 FINDINGS: Right and left kidneys measure 9.9, and 10.1 centimeters respectively. No hydronephrosis, renal calcifications, masses, or areas of cortical thinning seen. Tiny scattered parenchymal cysts a re again seen. Urinary bladder is unremarkable. Prevoid volume: 99 ccs Post void volume: 4 ccs Ureteral jets were documented bilaterall y. Increased liver echogenicity consistent with known steatosis. IMPRESSION No evidence of urinary outflow obstructi on. Liver steatosis. Thank you for letting us participate in the care of this patient. If you are a health care provider and have any questi ons regarding this report, please contact the number below. For patients w ho have questions please contact the health account executive healthcare that requested your imaging first. Nancy Clemente APRN IMG US GEN ORDERABLES documented in this encounter Visit Diagnoses Not on filedocumented in this encounter Care Teams Sanitation Supervisor Relationship Specialty Start Date End Date Barbara Roger APRN PCP - General Family Medicine 04/25/[address] [place] [address] documented as of this encounter
--- OUTSIDE RECORDS SUMMARY | 2021-10-30 00:31 | XMS_ITS | Encounter Summary ---
:1950 Author Organization [facility] Address [address] [place] [address] Care Team Providers Name Role Phone Danyelle Barahona [facility] Primary Care Provider Reason for Visit Reason Onset Date Comments Post-OP Follow Up 04/28/2017 POM #1 s/p CE w/ PC IOL, left eye (04/01/17) Encounter Details Date Type Department Care Team Description 04/28/2017 Office Visit [facility] Yokasta Blas MD Ophthalmology - [place] [address] [place] [phone] [address] [place], [place] [id number] [phone] Social History Tobacco Use Types Packs/Day Years Used Date Former Smoker Smokeless Tobacco: Never Used Alcohol Use Standard Drinks/Week Comments Yes 0 (1 standard drink = 0.6 oz pure alcoho l) on [facility] Alcohol Habits Answer Date Recorded How [...] a physical, mental, or emotional condition, No 04/28/2017 does this person have difficulty doing errands alone such as visiting a doctor's office or shopping? Cognitive Status Response Date of Assessment Because of a physical, mental, or emotional condition, No 04/28/2017 does this person have serious difficulty concentrating, remembering, or making decisions? documented as of this encounter Progress Notes Ahmet Blas MD - 04/28/2017 0916 EST Chief Complaint: Pseudophakia, Cataract Post-Op Month 1, both eye(s) HPI POM #1 s/p CE/PCIOL, both eye(s). Location: Pain: 0 - No pain Quality: Severity: Duration: Timing: Lasts: Context: POM #1 CEw/PCIOL left eye (04/01/17), doing well, no pain. Modifying factors: Using all drops as directed. Associated Signs & Symptoms: Visual Fluctuations: None Attestation: Base Eye Exam Visual Acuity (Snellen - Linear) Right Left Dist sc 20/20 -1 20/20 Tonometry (Applanation, 9:37) Right Left Pressure 15 15 Pupils Dark APD Right 2 None Left 2.5 None Neuro/Psych Oriented x3: Yes Mood/Affect: Normal Dilation Both eyes: 1.0% Mydriacyl, 2.5% Phenylephrine @ 9:38 Slit Lamp and Fundus Exam Slit Lamp Exam Right Left Lids/Lashes Normal Normal Conjunctiva/Sclera White and quiet White and quiet Cornea incisions sealed, LRI incisions superior and inferior Sealed incisions, LRI superior and inferior Anterior Chamber Deep and quiet Deep and quiet Iris Round and reactive Round and reactive Lens Centered posterior chamber intraocular lens Centered posterior chamber intraocular lens Fundus Exam Right Left Vitreous Normal Normal Disc Normal Normal C/D Ratio 0.4 0.4 Macula Normal Normal Vessels Normal Normal Periphery Normal Normal Refraction Manifest Refraction (Auto) Sphere Cylinder [place] Dist Add Near Right -1.25 +0.50 175 Left -1.25 +0.75 110 Manifest Refraction #2 Sphere Cylinder [place] Dist Add Near Right [place] +0.50 030 20/20 +2.25 J1+ Left [place] +0.25 120 20/20 +2.25 J1+ Final Rx Sphere Cylinder [place] Add Right [place] +0.50 030 +2.25 Left [place] +0.25 120 +2.25 Expiration Date: 04/29/2019 Cataract surgery - right eye: 03/18/17 left eye: 04/01/17 IMPRESSION & PLAN: POM #1 s/p CE/PCIOL with Limbal Relaxing Incisions, both eye(s) (right 03/18/17 left , 04/01/17) -The patient is doing well -Finished with eye drops -Recommend AT's PRN for burning -MRx given -Resume care with Dr. Uriostegui ([place], [place]) I have reviewed the patient's past medical, [...] this encounter Visit Diagnoses Diagnosis S/P cataract surgery, left - Primary S/P cataract extraction, right documented in this encounter Eye Exam Visual Acuity (Snellen - Linear) Right eye Left eye Dist sc 20/20 -1 20/20 Tonometry (Applanation, 9:37) Right eye Left eye Pressure 15 15 Pupils Dark APD Right eye 2 None Left eye 2.5 None Neuro/Psych Oriented x3: Yes Mood/Affect: Normal Dilation Both eyes: 1.0% Mydriacyl, 2.5% Phenylep hrine @ 9:38 Slit Lamp Exam Right eye Left eye Lids/Lashes Normal Normal Conjunctiva/Sclera White and quiet White and quiet Cornea incisions sealed, LRI incisions Sealed i ncisions, LRI superior superior and inferior and inferior Anterior Chamber Deep and quiet Deep and quiet Iris Round and reactive Round and reactive Lens Centered posterior chamber Centered post erior chamber intraocular lens intraocular lens Vitreous Normal Normal Fundus Exam Right eye Left eye Disc Normal Normal C/D Ratio 0.4 0.4 Macula Normal Normal Vessels Normal Normal Periphery Normal Normal Manifest Refraction #1 (Auto) Sphere Cylinder [place] Dist VA Add Near VA Right eye -1.25 +0.50 175 Left eye -1.25 +0.75 110 Manifest Refraction #2 Sphere Cylinder [place] Dist VA Add Near VA Right eye [place] +0.50 030 20/20 +2.25 J1+ Left eye [place] +0.25 120 20/20 +2.25 J1+ Final Rx Sphere Cylinder [place] Add Right eye [place] +0.50 030 +2.25 Left eye [place] +0.25 120 +2.25 Expiration Date: 04/29/2019 Cataract surgery - right eye: 03/18/17 left eye: 04/01/17 Care Teams Installation Drafter Relationship Specialty Start Date End Date Danyelle Barahona, ENGAGEMENT EXECUTIVE PCP - General 02/09/[address] [place] [phone] documented as of this encounter
--- OUTSIDE RECORDS SUMMARY | 2021-10-30 00:31 | XMS_ITS | Encounter Summary ---
:1950 Author Organization [facility] [place] [address] Care Team Providers Name Role Phone Dina Ellis MD Primary Care Provider Encounter Details Date Type Department Care Team Description 04/23/2020 Ancillary Procedure Radiology Library at [address], [facility] [place] [address] VASCULAR SURGERY [phone] [place], [place] [address] (Wo rk) Social History Tobacco Use Types Packs/Day Years Used Date Never Assessed Sex Assigned at Date Recorded Not on file documented as of this encounter Plan of Treatment Not on filedocumented as of this encounter Procedures Procedure Name Priority Date/Time Associated Diagnosis Comme nts FILM LIBRARY Routine 04/23/2020 12:00 AM Results for this STORAGE ONLY CT EST procedure ar e in ABDOMEN AND PELVIS the resul ts section. documented in this encounter Results Film Library- Storage Only CT Abdomen & Pelvis (04/23/2020 12:00 AM EST) Specimen (Source) Anatomical Location Collection Method / Collectio n Time Received Time / Laterality Volume Narrative [facility] - 04/30/2020 1:07 PM EST This exam is auto-finalizing. It's purpo se is for storage only. Koby Mendoza MD IMG FILM LIBRARY ORDERABLES Performing Organization Address City/State/ZIP Code Phon e Number [place], [place] documented in this encounter Visit Diagnoses Not on filedocumented in this encounter Care Teams Manager Garage Relationship Specialty Start Date End Date Dina Ellis MD PCP - General 02/24/10 04/24/[address] [place] [phone] documented as of this encounter
--- OUTSIDE RECORDS SUMMARY | 2021-10-30 00:31 | XMS_ITS | Encounter Summary ---
:1950 Author Organization [facility] [address] Care Team Providers Name Role Phone Barbara Roger APRN Primary Care Provider Encounter Details Date Type Department Care Team Description 12/11/2020 Interpretation Only [facility] BrynNancy milian, [address] [place], [place] [address] [phone] [place], [place] [id number] Social History Tobacco Use Types Packs/Day Years [...] Name Priority Date/Time Associated Diagnosis Comme nts MAMMO SCREENING CAD Routine 12/11/2020 1:10 PM Re sults for this BILATERAL EDT procedure are i n the results section. documented in this encounter Results Mammo Screening Cad Bilateral (12/11/2020 1:10 PM EDT) P athologist Signature PT CLASS O DH RAD ADMITDTTM DH RAD PT RAD INFO [id number]^RI DH RAD IESTLEY^NANCY EXAM DESC MADDSC^SCREEN DH RAD MAMMO BL INCLUDES CAD^RIS Anatomical Region Laterality Modality Breast Bilateral Mammography Specimen (Source) Anatomical Location Collection Method / Collectio n Time Received Time / Laterality Volume Impressions 12/11/2020 1:25 PM EDT BI-RADS ??category 1: negative- No mammographic evidence of malignancy. RECOMMENDATION: * ??Regular screening mammograms startin g between age 40 and 50 reduces the risk of from breast cancer. * ??All screening tests have both risks and benefits. These risks and benefits should be assessed for each individual p atient through discussion with their provider to determine their preferred br east cancer screening schedule. * ??Women should report any breast felton es to a health care provider right away. * ??Some women, because of their family history, a genetic tendency, or other factors, should be screened with annual breast MRI as well as with mammograms. (The number of women who fall into this category is very small). Patients and health care providers should discuss the history of each patient to decide if earlier screening and/or breast MRI are appropriate. * ??Screening should continue as long as a woman is in good health and is expected to live 10 years or longer. * ??Screening mammography may not detect 10-15% of breast cancers. Thank you for letting us participate in the care of this patient. ??If you are a health care provider and have any questi ons regarding this report, please contact the number below. ??For patients who have questions please contact the health healthcare applications analyst that requested your imaging first. ? Narrative 12/11/2020 1:25 PM EDT EXAMINATION: SCREEN MAMMO BL INCLUDES CAD, BREAST SCREEN TOMOSYNTHESIS BI CLINICAL HISTORY: screening for breast c ancer Family history of breast cancer: Sister. Reproductive history: Parous No personal history of breast cancer. COMPARISON: Previous mammograms were rev iewed. TECHNIQUE: ??Bilateral MLO and CC digita l mammograms were obtained and reviewed with CAD. ?? 2-D and 3-D tomosynthesis i mages were obtained. FINDINGS: There are no suspicious microc alcifications, masses, or areas of distortion. No changes compared to prior studies. Breast density: There are scattered area s of fibroglandular density. Procedure Note Kmaar Finch MD - 12/11/2020For matting of this note might be different from the original. EXAMINATION: SCREEN MAMMO BL INCLUDES CA D, BREAST SCREEN TOMOSYNTHESIS BI CLINICAL HISTORY: screening for breast c ancer Family history of breast cancer: Sister. Reproductive history: Parous No personal history of breast cancer. COMPARISON: Previous mammograms were rev iewed. TECHNIQUE: Bilateral MLO and CC digital mammograms were obtained and reviewed with CAD. 2-D and 3-D tomosynthesis imag es were obtained. FINDINGS: There are no suspicious microc alcifications, masses, or areas of distortion. No changes compared to prior studies. Breast density: There are scattered area s of fibroglandular density. IMPRESSION BI-RADS category 1: negative- No mammogr aphic evidence of malignancy. RECOMMENDATION: * Regular screening mammograms starting between age 40 and 50 reduces the risk of from breast cancer. * All screening tests have both risks an d benefits. These risks and benefits should be assessed for each individual p atient through discussion with their provider to determine their preferred [facility] cancer screening schedule. * Women should report any breast changes to a health care provider right away. * Some women, because of their family hi story, a genetic tendency, or other factors, should be screened with annual breast MRI as well as with mammograms. (The number of women who fall into this category is very small). Patients and health care providers should discuss the history of each patient to decide if earlier screening and/or breast MRI are appropriate. * Screening should continue as long as a woman is in good health and is expected to live 10 years or longer. * Screening mammography may not detect 1 0-15% of breast cancers. Thank you for letting us participate in the care of this patient. If you are a health care provider and have any questi ons regarding this report, please contact the number below. For patients w ho have questions please contact the health healthcare applications analyst that requested your imaging first. Nancy Clemente APRN IMG MAMMO ORDERABLES documented in this encounter Visit Diagnoses Not on filedocumented in this encounter Care Teams Optical Mechanic Relationship Specialty Start Date End Date Barbara Roger APRN PCP - General Family Medicine 04/25/20 2 [facility] [place] [address] documented as of this encounter
--- OUTSIDE RECORDS SUMMARY | 2021-10-30 00:31 | XMS_ITS | Encounter Summary ---
:1950 Author Organization [facility] Address [address] [place] [address] Care Team Providers Name Role Phone Danyelle Barahona TOBACCO GRADER Primary Care Provider Reason for Visit Reason Comments Post-OP Follow Up POD #0 CEw/PCIOL right eye Encounter Details Date Type Department Care Team Description 03/18/2017 Office Visit [facility] Yokasta Blas MD Ophthalmology - [place] in [address] [place] [phone] [address] [place], [place] [address] [phone] Social History Tobacco Use Types Packs/Day Years Used Date Former Smoker Smokeless Tobacco: Never Used Alcohol Use Standard Drinks/Week Comments Yes 0 (1 standard drink = 0.6 oz pure alcoho l) on [facility] Alcohol Habits Answer Date Recorded How [...] encounter Progress Notes Ahmet Blas MD - 03/18/2017 1151 EST Chief Complaint: Pseudophakia, Cataract Post-Op Day 0, right eye HPI The patient is a 66 y.o. female, POD #0 s/p Cataract extraction with PCIOL, right eye. No pain. Location: Both eyes Pain: Quality: Blurry Severity: Mild Duration: Months Timing: Fluctuates Lasts: Months Context: POD #0 CEw/PCIOL right eye. She notes her eye is feeling scratchy and watery. No pain. Modifying factors: I administered first set of drops. Associated Signs & Symptoms: Hx of RP in mother, no other family members have it Visual Fluctuations: Floaters (occ for yrs) Attestation: Base Eye Exam Visual Acuity (Snellen - Linear) Right Left Dist sc 20/30 Tonometry (Applanation, 12:05) Right Left Pressure 15 Pupils Light React APD Right 7 dilated None Left 3 Brisk None Neuro/Psych Oriented x3: Yes Mood/Affect: Normal Slit Lamp and Fundus Exam Slit Lamp Exam Right Left Lids/Lashes Normal Normal Conjunctiva/Sclera White and quiet White and quiet Cornea incisions sealed, 1+ Edema, LRI incisions Clear Anterior Chamber deep, 2+ Cell Deep and quiet Iris dilated Round and reactive Lens Posterior chamber intraocular lens 1-2+ Nuclear sclerosis, 2+ Cortical cataract Fundus Exam Right Left Disc slightly hazy view to posterior pole IMPRESSION & PLAN: POD #0 s/p Cataract Extraction with PCIOL, right eye (03/18/17) -patient is doing well -Use Ofloxacin, ketorolac and PF QID (drop schedule given) -Continue to wear plastic shield over eye at night for 1 week. -Warnings and precautions discussed. -RTC 1 week or sooner PRN eye redness/pain or worsening vision I have reviewed the patient's past medical, [...] Diagnosis S/P cataract extraction, right - Primary documented in this encounter Eye Exam Visual Acuity (Snellen - Linear) Right eye Left eye Dist sc 20/30 Tonometry (Applanation, 12:05) Right eye Left eye Pressure 15 Pupils Light React APD Right eye 7 dilated None Left eye 3 Brisk None Neuro/Psych Oriented x3: Yes Mood/Affect: Normal Slit Lamp Exam Right eye Left eye Lids/Lashes Normal Normal Conjunctiva/Sclera White and quiet White and quiet Cornea incisions sealed, 1+ Edema, LRI Clear incisions Anterior Chamber deep, 2+ Cell Deep and quiet Iris dilated Round and reactive Lens Posterior chamber intraocular lens 1-2+ Nuclear sclerosis, 2+ Cortical cataract Fundus Exam Right eye Left eye Disc slightly hazy view to posterior pole Care Teams Texture Artist Relationship Specialty Start Date End Date Danyelle Barahona, TOBACCO GRADER PCP - General 02/09/[address] [place] [phone] documented as of this encounter
--- OUTSIDE RECORDS SUMMARY | 2021-10-30 00:31 | XMS_ITS | Encounter Summary ---
:1950 Author Organization [facility] [place] [address] Care Team Providers Name Role Phone Barbara Roger APRN Primary Care Provider Encounter Details Date Type Department Care Team Description 12/11/[address] [facility] Bryn, Ayla R, [address] [place], [place] [address] [phone] [place], [place] [id number] Social History Tobacco Use Types Packs/Day Years [...] 12/11/2020 1:10 PM Re sults for this AND MIKEY BILATERAL EDT procedure are in the results section. documented in this encounter Results Mammo Screening Cad and Mikey Bilateral (12/11/2020 1:10 PM EDT) [facility] Method Time Signature PT CLASS O DH RAD ADMITDTTM DH RAD PT DH RAD INFO [id number]^SURVEY DIRECTOR DH RAD SILVINA^NANCY EXAM DESC MADDSCTO^BREAST DH RAD SCREEN TOMOSYNTHESIS BI^RIS Anatomical Region Laterality Modality Breast Bilateral Mammography [...] with their provider to determine their preferred east cancer screening schedule. * ??Women should [...] who have questions please contact the health pet caretaker that requested your imaging first. ? Narrative [...] area s of fibroglandular density. Procedure Note Kamar Finch MD - 12/11/2020For matting of this [...] with their provider to determine their preferred east cancer screening schedule. * Women should report [...] ho have questions please contact the health pet caretaker that requested your imaging first. Electronically signed by: Kamar abdul MD, [facility] ([phone]), at 12/11/2020 1:25 PM Nancy Clemente APRN IMG MAMMO ORDERABLES documented in this encounter Visit Diagnoses Not on filedocumented in this encounter Care Teams Aligner Relationship Specialty Start Date End Date Barbara Roger APRN PCP - General Family Medicine 04/25/20 05/14/[address] [place] [address] [place] [address] documented as of this encounter
--- OUTSIDE RECORDS SUMMARY | 2021-10-30 00:31 | XMS_ITS | Encounter Summary ---
:1950 Author Organization [facility] [place] [address] Care Team Providers Name Role Phone Barbara Roger APRN Primary Care Provider Encounter Details Date Type Department Care Team Description 03/26/2021 Interpretation Only [address] Del Singleton APRN [place], [place] [address] [address] [place], [place] [phone] [address] Social History Tobacco Use Types Packs/Day Years [...] on filedocumented in this encounter Care Teams Bid Writer Relationship Specialty Start Date End Date Barbara Roger APRN PCP - General Family Medicine 04/25/20 05/14/21 [address] [place] [address] documented as of this encounter
--- OUTSIDE RECORDS SUMMARY | 2021-10-30 00:31 | XMS_ITS | Encounter Summary ---
:1950 Author Organization [facility] Address [address] [place] [address] Care Team Providers Name Role Phone Danyelle Barahona VACUUM METALIZING SUPERVISOR Primary Care Provider Reason for Visit Reason Onset Date Comments Medications Refill 02/17/2017 Encounter Details Date Type Department Care Team Description 02/17/2017 Refill [facility] Tianna Thomas cca, MICHAEL Medications Refill Ophthalmology - [place] in [address] [facility] [address] [place] [address] [address] [place] [address] Social History Tobacco Use Types Packs/Day Years Used Date Former Smoker Smokeless Tobacco: Never Used Alcohol Use Standard Drinks/Week Comments Yes 0 (1 standard drink = 0.6 oz pure alcoho l) on [facility] Alcohol Habits Answer Date Recorded How often [...] Sig Dispensed Refills Start Date End Date moxifloxacin (VIGAMOX) 0.5 Place 1 Drop into 3 mL 1 % ophthalmic solution the right eye 4 times daily. documented in this encounter Plan of Treatment Not on filedocumented as of this encounter Visit Diagnoses Not on filedocumented in this encounter Discontinued Medications Medication Sig Discontinue Reason Start Date End Date ofloxacin (OCUFLOX) 0.3 Place 1 Drop into Insurance does not 201602/17/2017 % ophthalmic solution the right eye 4 cover times daily. documented as of this encounter Care Teams Research Manager Relationship Specialty Start Date End Date Danyelle Barahona FNP PCP - General 02/09/[address] [place] [phone] documented as of this encounter
--- OUTSIDE RECORDS SUMMARY | 2021-10-30 00:31 | XMS_ITS | Encounter Summary ---
:1950 Author Organization [facility] Address [address] [place] [address] Care Team Providers Name Role Phone Danyelle Barahona SUGAR BOILER Primary Care Provider Reason for Visit Reason Comments Post-OP Follow Up POD # 0 CEw/PCIOL left eye Encounter Details Date Type Department Care Team Description 04/01/2017 Office Visit [facility] Yokasta Blas MD Ophthalmology - [place] in [address] [place] [phone] [address] [place], [place] [address] [phone] Social History Tobacco Use Types Packs/Day Years Used Date Former Smoker Smokeless Tobacco: Never Used Alcohol Use Standard Drinks/Week Comments Yes 0 (1 standard drink = 0.6 oz pure alcoho l) on [facility] Alcohol Habits Answer Date Recorded How [...] a physical, mental, or emotional condition, No 04/01/2017 does this person have difficulty doing errands alone such as visiting a doctor's office or shopping? Cognitive Status Response Date of Assessment Because of a physical, mental, or emotional condition, No 04/01/2017 does this person have serious difficulty concentrating, remembering, or making decisions? documented as of this encounter Progress Notes Ahmet Blas MD - 04/01/2017 1217 EST Chief Complaint: Pseudophakia, Cataract Post-Op Day 0, left eye HPI The patient is a 66 y.o. female, POD #1 s/p Cataract extraction with PCIOL, left eye. Location: Pain: Quality: Severity: Duration: Timing: Lasts: Context: POD #0 CEw/PCIOL left eye (04/01/17), doing well, left eye a little scratchy. Modifying factors: I administered first set of drops. Associated Signs & Symptoms: Visual Fluctuations: None Attestation: Base Eye Exam Visual Acuity (Snellen - Linear) Right Left Dist sc 20/20 -1 20/50 -2 Tonometry (Applanation, 12:30) Right Left Pressure 22 Pupils Light React Right Left 7 dilated Neuro/Psych Oriented x3: Yes Mood/Affect: Normal Slit Lamp and Fundus Exam Slit Lamp Exam Right Left Lids/Lashes Normal Normal Conjunctiva/Sclera White and quiet White and quiet Cornea incisions sealed, LRI incisions superior and inferior 2+ Punctate epithelial erosions, traceedema, epi defect at superior LRI, LRI superior and inferior Anterior Chamber deep, rare+ Cell deep, 2+ Cell Iris Round and reactive Dilated Lens Posterior chamber intraocular lens Posterior chamber intraocular lens Fundus Exam Right Left Disc clear view to posterior pole slightly hazy view to posterior pole IMPRESSION & PLAN: POD #0 s/p Cataract Extraction with PCIOL, left eye -patient is doing well -Use Ofloxacin, ketorolac [...] my own HPI and have reviewed the [facility]'s ROS as well. I personally completed this exam myself. Ahmet Blas MD documented in this encounter Plan of Treatment Not on filedocumented as of this encounter Visit Diagnoses Diagnosis S/P cataract surgery, left - Primary documented in this encounter Eye Exam Visual Acuity (Snellen - Linear) Right eye Left eye Dist sc 20/20 -1 20/50 -2 Tonometry (Applanation, 12:30) Right eye Left eye Pressure 22 Pupils Light React Right eye Left eye 7 dilated Neuro/Psych Oriented x3: Yes Mood/Affect: Normal Slit Lamp Exam Right eye Left eye Lids/Lashes Normal Normal Conjunctiva/Sclera White and quiet White and quiet Cornea incisions sealed, LRI incisions 2+ Punct ate epithelial erosions, superior and inferior trace edema, epi d efect at superior LRI, LRI lopez perior and inferior Anterior Chamber deep, rare+ Cell deep, 2+ Cell Iris Round and reactive Dilated Lens Posterior chamber intraocular Posterior chamber intraocular lens lens Fundus Exam Right eye Left eye Disc clear view to posterior pole slightly kim zy view to posterior pole Care Teams Tie Puller Relationship Specialty Start Date End Date Danyelle Barahona, SUGAR BOILER PCP - General 02/09/[address] [place] [phone] documented as of this encounter
--- OUTSIDE RECORDS SUMMARY | 2021-10-30 00:31 | XMS_ITS | Encounter Summary ---
:1950 Author Organization [facility] Address [address] [place] [address] Care Team Providers Name Role Phone Danyelle Barahona Justo GUM SPRAYER Primary Care Provider Encounter Details Date Type Department Care Team Description 03/18/2017 Hospital Encounter [facility] - Unknown, Sondra go, [facility] [phone] [place] [address] (Work) [place] [address] Social History Tobacco Use Types Packs/Day Years Used Date Former Smoker Smokeless Tobacco: Never Used Alcohol Use Standard Drinks/Week Comments Yes 0 (1 standard drink = 0.6 oz pure alcoho l) on [facility] Alcohol Habits Answer Date Recorded How often [...] making decisions? documented as of this encounter Medications at Time of Discharge Medication Sig Dispensed Refills Start Date End Date Diclofenac Sodium 100 mg Take 100 mg by 0 tablet extended release 24 mouth daily as hr needed. ketOROLAC tromethamine Place 1 Drop into 5 mL 2 2016 (ACULAR LS) 0.4 % drops the right eye 4 times daily. levothyroxine (SYNTHROID) 75 Take 75 mcg by 0 mcg tablet mouth daily. lovastatin (MEVACOR) 40 mg Take 40 mg by mouth 0 tablet daily. moxifloxacin (VIGAMOX) 0.5 % Place 1 Drop into 3 mL 1 03/17/2017 ophthalmic solution the right eye 4 times daily. prednisoLONE (PRED FORTE) 1 Place 1 Drop into 1 Bottle 2 1 05/20/2016 % ophthalmic suspension the right eye 4 times daily. documented as of this encounter Discharge Disposition Disposition Code Departure Means Destination Home or Self Correction documented in this encounter Plan of Treatment Not on filedocumented as of this encounter Visit Diagnoses Not on filedocumented in this encounter Care Teams Audit Consultant Relationship Specialty Start Date End Date Danyelle Barahona FNP PCP - General 02/09/[address] [place] [phone] documented as of this encounter
--- OUTSIDE RECORDS SUMMARY | 2021-10-30 00:31 | XMS_ITS | Encounter Summary ---
:1950 Author Organization [facility] Address [address] [place] [address] Care Team Providers Name Role Phone Danyelle Barahona [facility] Primary Care Provider Reason for Visit Reason Comments Referral Request referred by Abdullahi Uriostegui.O D for cataracts Consult (Routine) - Closed Specialty Diagnoses / Procedures Referred By Contact Refer red To Contact Ophthalmology Diagnoses Cataract Abdullahi Uriostegui, OD Ahmet Blas MD [facility] [address] [place] [id number] [place] [address] Referral ID Status Reason Start Date Expiration Date Visits Requ ested Visits Authorized [id number] Closed 1 1 Encounter Details Date Type Department Care Team Description 02/10/2017 Office Visit [facility] Yokasta Blas MD Ophthalmology - [place] in [address] [place] [id number] [address] [place], [place] [id number] [phone] Social History Tobacco Use Types Packs/Day Years Used Date Former Smoker Smokeless Tobacco: Never Used Alcohol Use Standard Drinks/Week Comments Yes 0 (1 standard drink = 0.6 oz pure alcoho l) on [facility] Alcohol Habits Answer Date Recorded How often [...] as of this encounter Patient Instructions Patient InstructionsYoAhmet aguillon MD - 02/10/2017 14:30 EST Please make an appointment with your Primary Doctor for a pre-operative physical. Try to schedule for about 2 weeks prior to your surgery. Your lens measurement appointment is: February 15, at 9:00 am at our office [address] [place], [place] Your surgery date is: March 18, 2017 at [facility] (check in at Patient Registration). The Hospital will call you prior to the surgery with your report time. documented in this encounter Progress Notes Ahmet Blas MD - 02/10/2017 1430 EST Chief Complaint Patient presents with ??? Referral Request referred by Abdullahi Uriostegui.OD for cataracts HPI The patient is a 66 y.o. female is here for a complete exam. She has blurry vision in both eyes. Shehas lots of glare and light sensitivity. The glare is bothering her during the day also.she has no eye pain, double vision, or new flashes/floaters. Right Eye: Blurred Vision Left Eye: Blurred Vision Visual Aid: Glasses Current Rx Age 3 year Location: Both eyes Pain: 0 - No pain Quality: Blurry Severity: Mild Duration: Months Timing: Fluctuates Lasts: Months Context: vision blurrier over last 3 mos with lots of glare even during the day, was seen by Dr Uriostegui on 12-31-2016 and referred here for cortical cataracts Modifying factors: Associated Signs & Symptoms: Hx of RP in mother, no other family members have it Attestation: ROS Constitutional: NL ENT/Mouth NL Cardiovascular: High Cholesterol Respiratory: NL Gastrointestinal: NL Genitourinary: NL Musculoskeletal: NL Integumentary: NL Neurologic: NL Psychiatric: NL Endocrine: Thyroid problems Hematologic: NL Immunologic: Curtain Worker: Exposures: None Other: Attestation: Base Eye Exam Visual Acuity (Snellen - Linear) Right Left Dist cc 20/30 +2 20/30 +2 Dist ph cc NI 20/25 Near cc J3-2 J1-2 Correction: Glasses Tonometry (Applanation, 14:48) Right Left Pressure 14 16 Pupils Dark Light React APD Right 2.5 2 Brisk None Left 3.0 2.5 Brisk None Neuro/Psych Oriented x3: Yes Mood/Affect: Normal Dilation Both eyes: 1.0% Mydriacyl, 2.5% Phenylephrine @ 14:52 Additional Tests Glare Testing (BAT) Off High Right 20/25 20/50- Left 20/30 20/50- Refraction Wearing Rx Sphere Cylinder [place] Add Right +1.50 Sphere +2.00 Left +1.25 +0.25 105 +2.00 Age: 9m Type: Bifocal Manifest Refraction Sphere Cylinder [place] Dist Add Near Right +1.50 Sphere 20/25 +2.50 J2 Left +1.00 +0.50 085 20/30 +2.50 J1 Manifest Refraction #2 (Auto) Sphere Cylinder [place] Dist Add Near Right +1.75 +1.25 085 20/30- Left +0.75 +2.25 085 20/60- DIAGNOSTIC TESTS: IMPRESSION & PLAN: 1. Cataract, both eyes Visually significant -Discussed cataract surgery in detail including risks (including but not limited to infection, retinal detachment, loss of vision/eye, corneal/macular edema, need for additional surgery), benefits, andalternatives and the patient elects to proceed with the Right eye first. -The patient was given an informational pamphlet -Return for biometry and IOL calculations February 15 at 9:00 Surgical planning: March, - Right eye. April 01 - Left eye Flomax: Yes/No Pupil dilation: Blood thinners: No Able to lie flat: Yes Pseudoexfoliation: YES Corneal guttae: no History of refractive surgery: no Risk for anisometropia: low Refractive aim: [place] 2. Pseudoexfoliation, right eye Discussed, increase risk of glaucoma and lens complication during or after cataract surgery. I have reviewed the patient's past medical, family, social and surgical history. I have also reviewed the patient's medications, allergies, and problem list. I performed my own HPI and have reviewed the tech's ROS as well. I completed this exam personally. Ahmet Blas MD I am scribing for Ahmet Blas MD, while he is personally performing the service. MICHAEL Fuller Patient Education Topic: Vision Method: Verbal Taught to: Patient Barriers: None Outcomes: independent Signature: Ahmet Blas MD documented in this encounter Plan of Treatment Not on filedocumented as of this encounter Visit Diagnoses Diagnosis Combined form of senile cataract of righ t eye - Primary Combined form of senile cataract of left eye Refractive error Unspecified disorder of refraction and a ccommodation documented in this encounter Historical Medications This list may reflect changes made after this encounter. Medication Sig Dispensed Refills Start Date End Date Diclofenac Sodium 100 mg Take 100 mg by 0 tablet extended release 24 mouth daily as hr needed. lovastatin (MEVACOR) 40 mg Take 40 mg by mouth 0 tablet daily. levothyroxine (SYNTHROID) 75 Take 75 mcg by 0 mcg tablet mouth daily. added in this encounter Eye Exam Visual Acuity (Snellen - Linear) Right eye Left eye Dist cc 20/30 +2 20/30 +2 Dist ph cc NI 20/25 Near cc J3-2 J1-2 Correction: Glasses Tonometry (Applanation, 14:48) Right eye Left eye Pressure 14 16 Pupils Dark Light React APD Right eye 2.5 2 Brisk None Left eye 3.0 2.5 Brisk None Visual Tabor (Counting fingers) Right eye Left eye Full Full Extraocular Movement Right eye Left eye Full Full Neuro/Psych Oriented x3: Yes Mood/Affect: Normal Dilation Both eyes: 1.0% Mydriacyl, 2.5% Phenylep hrine @ 14:52 Glare Testing (BAT) Off High Right eye 20/25 20/50- Left eye 20/30 20/50- Slit Lamp Exam Right eye Left eye Lids/Lashes Normal Normal Conjunctiva/Sclera White and quiet White and quiet Cornea Clear Clear Anterior Chamber Deep and quiet Deep and quiet Iris Round and reactive Round and reactive Lens 1-2+ Nuclear sclerosis, 2+Scattered 1-2+ Nuclear sclerosis, 2+ Cortical cataract, Pseudoexfoliation Cor tical cataract Vitreous Normal Normal Fundus Exam Right eye Left eye Disc Normal Normal C/D Ratio 0.4 0.45 Macula Normal Normal Vessels Normal Normal Periphery Normal Normal Wearing Rx Sphere Cylinder [place] Add Right eye +1.50 Sphere +2.00 Left eye +1.25 +0.25 105 +2.00 Age: 9m Type: Bifocal Manifest Refraction #1 Sphere Cylinder [place] Dist VA Add Near VA Right eye +1.50 Sphere 20/25 +2.50 J2 Left eye +1.00 +0.50 085 20/30 +2.50 J1 Manifest Refraction #2 (Auto) Sphere Cylinder [place] Dist VA Add Near VA Right eye +1.75 +1.25 085 20/30- Left eye +0.75 +2.25 085 20/60- Care Teams Transport Operations Inspector Relationship Specialty Start Date End Date Danyelle Barahona, METALSMITH HELPER PCP - General 02/09/[address] [place] [phone] documented as of this encounter
--- OUTSIDE RECORDS SUMMARY | 2021-10-30 00:31 | XMS_ITS | Encounter Summary ---
:1950 Author Organization [facility] Address [address] [place] [address] Care Team Providers Name Role Phone Danyelle Barahona [facility] Primary Care Provider Reason for Visit Reason Onset Date Comments Post-OP Follow Up 04/07/2017 POW #1 s/p CE w/ PC IOL, left eye (04/01/17) Encounter Details Date Type Department Care Team Description 04/07/2017 Office Visit [facility] Yokasta Blas MD Ophthalmology - [place] in [address] [place] [id number] [address] [place], [place] [id number] [phone] Social History Tobacco Use Types Packs/Day Years Used Date Former Smoker Smokeless Tobacco: Never Used Alcohol Use Standard Drinks/Week Comments Yes 0 (1 standard drink = 0.6 oz pure alcoho l) on [facility] Alcohol Habits Answer Date Recorded How [...] encounter Progress Notes Ahmet Blas MD - 04/07/2017 0915 EST Chief Complaint: Pseudophakia, Cataract Post-Op Week 1, left eye, HPI The patient is a 66 y.o. female, POW #1 s/p CE/PCIOL, left eye. Patient denies eye pain and has useddrops as instructed. Location: Pain: 0 - No pain Quality: Severity: Duration: Timing: Lasts: Context: POW #1 CEw/PCIOL left eye (04/01/17), doing well, no pain. Modifying factors: Using all drops as directed. Associated Signs & Symptoms: Visual Fluctuations: None Attestation: Base Eye Exam Visual Acuity (Snellen - Linear) Right Left Dist sc 20/20 20/20 Tonometry (Applanation, 9:32) Right Left Pressure 15 16 Pupils Pupils Dark APD Right PERRL 3 None Left PERRL 3 None Neuro/Psych Oriented x3: Yes Mood/Affect: Normal Slit Lamp and Fundus Exam Slit Lamp Exam Right Left Lids/Lashes Normal Normal Conjunctiva/Sclera White and quiet White and quiet Cornea incisions sealed, LRI incisions superior and inferior, No edema Trace edema over the incisions, LRI superior and inferior Anterior Chamber deep, rare+ Cell deep, Trace Cell Iris Round and reactive Round and reactive Lens Posterior chamber intraocular lens Posterior chamber intraocular lens Fundus Exam Right Left Disc clear view to posterior pole Clear view to posterior pole Refraction Manifest Refraction Sphere Cylinder [place] Right Left -1.50 +0.75 105 IMPRESSION & PLAN: POW #1 s/p CE/PCIOL, left eye -patient is doing well -D/C Ofloxacin -Continue ketorolac QID until bottle runs out -Taper PF TID X 1 week, BID X 1 week (according to drop schedule given) -Warnings and precautions discussed I have reviewed the patient's past medical, [...] Right eye Left eye Dist sc 20/20 20/20 Tonometry (Applanation, 9:32) Right eye Left eye Pressure 15 16 Pupils Pupils Dark APD Right eye PERRL 3 None Left eye PERRL 3 None Neuro/Psych Oriented x3: Yes Mood/Affect: Normal Slit Lamp Exam Right eye Left eye Lids/Lashes Normal Normal Conjunctiva/Sclera White and quiet White and quiet Cornea incisions sealed, LRI incisions Trace e nancy over the incisions, superior and inferior, No edema LRI supe rior and inferior Anterior Chamber deep, rare+ Cell deep, Trace Cell Iris Round and reactive Round and reactive Lens Posterior chamber intraocular Posterior chamber intraocular lens lens Fundus Exam Right eye Left eye Disc clear view to posterior pole Clear view to posterior pole Manifest Refraction Sphere Cylinder [place] Right eye Left eye -1.50 +0.75 105 Care Teams Wellness Program Administrator Relationship Specialty Start Date End Date Danyelle Barahona, AGRICULTURE LABORER PCP - General 02/09/[address] [place] [phone] documented as of this encounter
--- OUTSIDE RECORDS SUMMARY | 2021-10-30 00:32 | XMS_ITS ---
:1950 Author Organization [facility] Address [address] [place] [address] Care Team Providers Name Role Phone Areli Betancourt Unavailable Unavailable PROBLEMS Type Condition ICD9-CM Code [id number] Onset Condition SNOMED Code Code Dates Status Problem Family history of Z80.3 Active 42 7387834 breast cancer in first degree relative Problem Mixed E78.2 Active 769749386 hyperlipidemia Problem Acquired E03.9 Active 894727027 hypothyroidism Problem Lumbar M43.06 Active 626795774 spondylolysis Problem Cervical M47.812 Active 993815511 spondylosis Problem DDD (degenerative M50.30 Active 42 5640679 disc disease), cervical Problem Essential I10 Active 46653836 hypertension Problem Other chronic pain G89.29 Active 8 7144621 Problem Lumbago with M54.41 Active 3123847 5 sciatica, right side Problem Abdominal aortic I71.4 Active 753 08195 aneurysm (AAA) without rupture ALLERGIES Substance Reaction Event Type Date Status Prednisone Significant GI upset, fatigue Drug Allergy Oct, Active ENCOUNTERS Encounter Location Date Diagnosis [address] Oct, Annual phy sical exam Z00.00 ; [place] Dietary counseli ng Z71.3 ; [address] Heart murmur R01 .1 ; Screening for colon cancer Z12.11 ; Essential hypert ension I10 ; Acquired hypothy roidism E03.9 ; Mixed hyperlipid emia E78.2 ; Cervical spondyl osis M47.812 and Former smoke r Z87.[address] Sep, [place] [address] Sep, Acquired h ypothyroidism E03.9 ; [place] Essential hypert ension I10 and [address] Mixed hyperlipid emia E78.[address] August, Essential hypertension I10 ; [place] Neck pain M54.2 and Heart [address] murmur R01.1 [facility] [place] [address] May, Abdominal aortic aneurysm (AAA) [place] without rupture I71.[id number] Apr, [place] [address] Apr, DDD (degen erative disc [place] disease), cervic al M50.30 [address] Mar, [place] [address] Mar, [place] [address] Mar, [place] [address] Mar, Cervical s pondylosis M47.812 [place] [address] Mar, [place] [address] Feb, Acquired h ypothyroidism E03.9 [place] [address] Jan, Encounter for immunization Z23 [place] [address] Jan, [place] [address] Jan, Decreased glomerular filtration [place] rate (GFR) R94.4 [address] [facility] [place] [address] Jan, [place] [id number] [facility] [place] [address] Jan, [place] [id number] [facility] [place] [address] [facility] Jan, [place], [place] [id number] [address] Jan, Essential hypertension I10 ; [place] Mixed hyperlipid emia E78.2 ; [address] Acquired hypothy roidism E03.9 and Encounter fo r immunization Z23 [address] Dec, [place] [address] Nov, Encounter for screening [place] mammogram for ma lignant [address] Z12.[address] Nov, Abdominal aortic aneurysm (AAA) [place] without rupture I71.4 [address] Oct, Lumbago wi th sciatica, right [place] side M54.41 and Essential [address] hypertension I10 [address] August, Cervical s pondylosis M47.812 [place] and Lumbago with sciatica, [address] right side M54.[address] Jul, Acquired h ypothyroidism E03.9 [place] [address] Jun, Cervical r adiculopathy at C8 [place] M54.12 [address] Jun, Lumbar spo ndylolysis M43.06 ; [place] Low back pain M5 4.5 and Other [address] chronic pain G89 .[address] May, Essential hypertension I10 [place] Abdominal aortic aneurysm (AAA) [address] without rupture I71.[address] Apr, Abdominal aortic aneurysm (AAA) [place] without rupture I71.4 [address] [facility] [address] Apr, [facility] onnect [place] CINS [id number] [facility] [address] 18 Apr, 2020 Essential hypert ension I10 [place] [id number] [address] 15 Apr, 2020 Essential [place]10 [place] [address] 14 Apr, 2020 Essential hypertension I10 [place] [address] 12 Apr, 2020 Abdominal aortic aneurysm (AAA) [place] without rupture I71.4 [address] [facility] [address] 11 Apr, 2020 Sliding Fee [place] [id number] [address] Mar, Pain in ri ght shoulder M25.511 [place] ; Pain in left s houlder M25.512 [address] and Other chroni c pain G89.[address] Mar, Lumbago wi th sciatica, right [place] side M54.41 and Other chronic [address] pain G89.29 [facility] [address] Mar, Hip pain M25.559 [place] [id number] [address] Mar, Mixed hype rlipidemia E78.2 and [place] Cervical radicul opathy at C8 [address] M54.12 [facility] [address] Feb, [place] [id number] [facility] [address] Feb, [place] [id number] [facility] [address] Jan, Acute pain of ri ght shoulder [place] M25.[id number] Jan, Acute pain of right shoulder [place] M25.511 [address] Jan, Disorder o f right rotator cuff [place] M67.911 ; Acute pain of left [address] shoulder M25.512 ; Neck pain M54.2 and Hip pa in M25.[address] Jan, Disorder o f right rotator cuff [place] M67.911 ; Acute pain of left [address] shoulder M25.512 and Neck pain M54.[address] Jan, [place] [address] Jan, Acquired h ypothyroidism E03.9 [place] [address] Dec, Encounter for immunization Z23 [place] [address] Dec, Cervical r adiculopathy at C8 [place] M54.12 [address] Nov, Essential hypertension I10 [place] [address] Nov, [place] [address] Nov, Annual phy sical exam Z00.00 ; [place] Dietary counseli ng Z71.3 ; [address] Essential hypert ension I10 ; Mixed hyperlipid emia E78.2 and Acquired hypothy roidism E03.[address] Nov, Acquired h ypothyroidism E03.9 ; [place] Essential hypert ension I10 and [address] Mixed hyperlipid emia E78.[address] Sep, Essential hypertension I10 [place] [address] Sep, [place] [address] Sep, [place] [address] August, [place] [address] Jul, Screening for breast cancer [place] Z12.39 [address] Jul, [place] [address] [facility] [address] [facility] Jun, [place] [id number] [address] Jun, [place] [address] Jun, Essential hypertension I10 [place] [address] Mar, Essential hypertension I10 ; [place] Mixed hyperlipid emia E78.2 and [address] Impaired fasting glucose R73.[address] Feb, [place] [address] [facility] [address] Feb, [place] [phone] [facility] [place] [address] Feb, Sliding Fee [place] [id number] [address] Jan, [place] [address] Jan, Screening for colon cancer [place] Z12.11 [address] Nov, Acquired h ypothyroidism E03.9 [place] [address] Oct, Essential hypertension I10 [place] [address] Oct, [place] [address] Oct, [place] [address] [facility] [address] [facility] Oct, [employer] V T or [place] [employer] [place] [id number] [employer] ; Ve [facility] ; Ve [facility] [place] Insuranc e VHCINS ; [facility] onneaz Medicaid VHCMED and Slidi ng Fee Scale SFS [facility] [address] [facility] Oct, Sliding Fe e Scale SFS [place] [phone] General Assi stance GEN [address] Sep, [facility] ; [place], [facility] onnect Medicaid [id number] [facility] and [place]ign[place] ng Fee Scale SFS [address] Sep, Essential hypertension [place]10 [place] [address] Sep, [place] [address] Sep, Impaired f asting glucose R73.01 [place] ; Mixed hyperlip idemia E78.2 ; [address] Essential hypert ension I10 ; Need for TD vacc ine Z23 and Leg cramps R25.[address] August, Essential hypertension I[place] [address] August, Annual phy sical exam Z00.00 ; [place] Dietary counseli ng Z71.3 ; [address] Essential hypert ension I10 ; Acquired hypothy roidism E03.9 ; Mixed hyperlipid emia E78.2 ; Need for vaccina tion against Streptococcus pn eumoniae using pneumococcal con jugate vaccine 13 Z23 ; Colon c ancer screening Z12.11 and Fall, initial encounter W19.XX XA [address] August, [place] [address] August, [place] [address] Jun, Screening for colon cancer [place] Z12.11 [address] Jun, [place] [address] Jun, Colon canc er screening Z12.11 [place] [address] May, [place] [address] May, Acquired h ypothyroidism E03.9 [place] [address] Apr, [place] [address] Feb, Essential hypertension I10 ; [place] Pain of right br east N64.4 and [address] Encounter for im munization Z23 [address] Jan, [place] [address] Dec, Encounter for immunization [place] [address] Oct, Essential hypertension I10 [place] [address] Oct, Essential hypertension [place] [address] Oct, Essential hypertension I10 [place] [address] Sep, [employer]APARE PO [employer]ITIVE PRA [place] [id number] [address] Sep, Essential hypertension I10 [place] [address] Sep, Annual phy sical exam Z00.00 ; [place] Need for hepatit is C screening [address] test Z11.59 ; Ne ck pain M54.2 ; Acquired hypothy roidism E03.9 and Mixed hyperl ipidemia E78.[address] May, Acquired h ypothyroidism E03.9 [place] [address] Apr, [place] [address] Mar, [place] [address] Feb, [place] [address] Feb, Pre-op paolo luation Z01.818 [place] Cataract of both eyes, [address] unspecified jose ract type H26.[address] Feb, Acquired h ypothyroidism E03.9 [place] [address] Jan, Encounter for immunization [place] [address] Nov, Acquired h ypothyroidism E03.9 [place] [address] Sep, Mass of ri ght elbow R22.31 [place] [address] Sep, Acquired h ypothyroidism E03.9 [place] [address] Sep, Acquired h ypothyroidism E03.9 [place] [address] Jun, [place] [address] Jun, Annual phy sical exam Z00.00 ; [place] Mixed hyperlipid emia E78.2 ; [address] Acquired hypothy roidism E03.9 and Screening fo r cervical cancer Z12.[address] Apr, [place] [address] Mar, Breast can cer screening Z12.39 [place] [address] [address] Mar, Screening for breast cancer [place] Z12.39 [address] Mar, [place] [id number] [address] Feb, Encounter for immunization Z23 [place] [address] August, Hyperchole sterolemia E78.0 [place] [address] Jun, Annual phy sical exam Z00.00 ; [place] Acquired hypothy roidism E03.9 ; [address] Mixed hyperlipid emia E78.2 and Family history o f breast cancer in first degree relative Z80.[address] May, Hyperchole sterolemia E78.0 [place] [address] Mar, Acquired h ypothyroidism E03.9 [place] [address] Mar, Acquired h ypothyroidism E03.9 [place] and Rotator cuff strain, left, [address] initial encounte r S46.012A [address] Feb, Acquired h ypothyroidism E03.9 [place] [address] Feb, [place] [id number] [address] Jan, Encounter for immunization [place]23 [place] [address] Dec, Hyperchole sterolemia E78.0 [place] [address] Dec, Hypothyroi d 244.9 [place] [address] Nov, Bradycardi a 427.89 [place] [address] Nov, Hypothyroi d 244.9 ; UTI [place] (urinary tract i nfection) 599.0 [address] and Bradycardia [address] Sep, Tick bite of abdomen 911.4 [place] [address] Jul, Hypothyroi d 244.9 [place] [address] Jun, Colon canc er screening V76.51 [place] [address] Jun, [place] [address] Jun, Annual Phy sical Exam V70.0 ; [place] Overweight 278.0 2 ; Cervical [address] strain, acute 84 7.0 ; Hypercholesterol emia 272.0 ; Impaired fasting glucose 790.21 ; Obesity 278.00 and Need for Zostavax adminis tration V04.[address] May, [place] [address] Apr, Influenza vaccine needed V04.81 [place] [address] Oct, [place] [address] August, [place] [address] August, [place] [address] Jul, Hypothyroi d 244.9 [place] [address] Jun, [place] [address] May, Elevated T SH 794.5 ; [place] Hypercholesterol emia 272.0 ; [address] Impaired fasting glucose 790.21 ; Overweight 278 .02 and Cervical strain, acute 847.[address] Mar, Hyperchole sterolemia 272.0 ; [place] Hypercalcemia 27 5.42 and [address] Impaired fasting glucose 790.[address] Mar, [place] [address] Mar, Annual Phy sical Exam V70.0 ; [place] Influenza vaccin e needed V04.81 [address] ; Cervical radic ulopathy at C8 723.4 and Acneif orm eruption 692.[address] Jan, [place] [address] Jul, [place] [address] Jun, Elevated B P 796.2 [place] [address] May, Abnormal m ammogram 793.80 and [place] Elevated BP 796. 2 [address] May, Strain of right trapezius [place] muscle 840.8 ; C ervical strain, [address] acute 847.0 and Cervical radiculopathy at C8 723.[address] May, [place] [address] May, Cervical s train, acute 847.0 ; [place] Cervical radicul opathy at C8 [address] 723.4 and Strain of right trapezius muscle 840.[address] Apr, Cervical s train, acute 847.0 [place] [address] C8 723.4 [facility] [place] [address] [place] [address] Apr, ABHAY [place] [id number] [address] Apr, Cervical s train, acute 847.0 [place] [address] C8 [address]23[address] Jan, [place] [address] Jan, Influenza vaccine needed V04.81 [place] [address] Oct, ABHAY Villalobos [id number] [address] Oct, Annual Phy sical Exam V70.0 ; ABHAY Reid Hypercalcemia 27 5.42 ; [address] Hypercholesterol emia 272.0 ; Postmenopausal V 49.81 ; Impaired fasting glucose 790.21 and Cervical can cer screening V76.[address] Oct, Hypercholes terolemia 272.0 ; ABHAY Villalobos Postmenopausal V 49.81 ; [id number] Impaired fasting glucose 790.21 and Hypercalcemi a 275.[address] Mar, [place] [address] IMMUNIZATIONS Vaccine Route Administration Date Status Influenza Adult FluBlok high dose IM Intramuscular Dec 19, 2019 Administered PURCHASED Pneumovax 23 Adult 65+ Purchased IM Intramuscular Jan 30, 2021 Administered 94260 COVID-19 Moderna 43079 Unknown June 27, 2020 Administe red COVID-19 Moderna 24049 Unknown July 25, 2020 Administe red TD 7 [place] [address] IM Intramuscular September 05, 2018 Administ ered Prevnar PCV 13 Adult 65+ Purchased IM Intramuscular August 11, 2018 Administered 02328 Influenza Adult FluBlok high dose IM Intramuscular Dec 30, 2017 Administered PURCHASED INFLUENZA 18 YRS TO 64 YRS Unknown Mar 05, 2011 Admin istered [employer] COVID-19 Moderna 34067 Unknown Feb 21, 2021 Administe red COVID-19 Moderna 69938 Unknown August 09, 2021 Administe red Zostavax [facility] 54549 IM Intramuscular June 07, 2014 Administere d TDaP Adult [facility] 59276 Unknown Apr 11, 2009 Administer ed INFLUENZA 18 YRS TO 64 YRS IM Intramuscular Jan 13, 2017 Admi nistered [employer] INFLUENZA 18 YRS TO 64 YRS IM Intramuscular Feb 11, 2016 Admi nistered [employer] INFLUENZA 18 YRS TO 64 YRS IM Intramuscular Jan 03, 2015 Admi nistered [employer] INFLUENZA 18 YRS TO 64 YRS IM Intramuscular Apr 10, 2014 Admi nistered [employer] INFLUENZA 18 YRS TO 64 YRS IM Intramuscular Mar 14, 2013 Admi nistered [employer] INFLUENZA 18 YRS TO 64 YRS IM Intramuscular Jan 20, 2012 Admi nistered [employer] SOCIAL HISTORY Qualifiers Date Former Smoker REASON FOR REFERRAL Reason Left shoulder pain, rotator cuff strain Referral Organization [facility] Referring Provider First Name Ian Referring Provider Last Name Elaina Referring Provider Specialty Family Medicine Referring Provider Referring Provider email [email or web address] Referred Provider [facility] Referred Provider Specialty Physical Therapist Referral Appointment Date 2015-03-26 Reason right elbow [place] Patient wan fridays anytime Referral Organization [facility] Referring Provider First Name Danyelle Referring Provider Last Name Argelia Referring Provider Specialty Nurse Practitioner Referring Provider Referring Provider email Referred Provider [facility],, Orthopaedics Referred Provider Specialty Orthopedic Surgery Referral Appointment Date 2016-10-19 Reason Referral to PT for acute right shoulder pain s/p fall; x-ray reveals no fract ure or dislocation, but does show DJD w/ inflammatio n. Please attach recent x-ray in referral docs. Than ks! Please contact our office within 7 days to noti fy [facility] of scheduled appointment Referral Organization [facility] Referring Provider First Name Barbara Referring Provider Last Name Yaneth Referring Provider Specialty Nurse Practitioner Referring Provider Referring Provider email [email or web address] Referred Provider Specialty Physical Therapist Referral Appointment Date 2020-02-14 Reason Patient requesting referral to [facility] for chronic pain in bilateral shoulders (history of rotator cuff dis order in bilateral shoulders) with radiating pa in and numbness down bilateral arms Please cont act our office within 7 days to notify LR of sched uled appointment Referral Organization [facility] Referring Provider First Name Barbara Referring Provider Last Name Yaneth Referring Provider Specialty Nurse Practitioner Referring Provider Referring Provider email [email or web address] Referred Provider Specialty Orthopedic Surgery Referral Appointment Date 2020-04-09 Reason Referral to [facility] Vascular fo r consult regarding newly diagnosed 3.7 cm AAA in asym ptomatic patient. Please include 04/23/[address] in referral documentation. Thanks! Please contact our office within 7 days to notify LR of scheduled cornelio ointment Patient seen on 05/16/20 Referral Organization [facility] Referring Provider First Name Barbara Referring Provider Last Name Yaneth Referring Provider Specialty Nurse Practitioner Referring Provider Referring Provider email [email or web address] Referred Provider Specialty Vascular Surgery Referral Appointment Date 2020-05-16 Reason LMTCB 06.23.2020 Referral to Alonso Donahue PT at [facility] for evaluation and treatment of chronic low back pain Please conta ct our office within 7 days to notify LR of scheduled appointment Referral Organization [facility] Referring Provider First Name Barbara Referring Provider Last Name Yaneth Referring Provider Specialty Nurse Practitioner Referring Provider Referring Provider email [email or web address] Referred Provider Specialty Physical Therapist Referral Appointment Date 2020-07-01 Reason 10.07.21 NOT YET SCHEDULED P S; REFAXED TO [facility] PCL 02/02/2021 PS 70 y/o female with family history of renal disease, significant d ecreased GFR and increasing CR without identifiable reas on, please eval. Please contact our office within 7 days to notify [facility] of scheduled appointment Referral Organization [facility] [place] Referring Provider First Name Nancy Referring Provider Last Name Bryn Referring Provider Specialty Nurse Practitioner Referring Provider Referring Provider email [email or web address] Referred Provider [facility], Referred Provider Specialty Nephrology Reason 04/14/21 @ 930AM with [facility] rtho/70 yo female with hx of cervical disc disease, no w with worsened symptoms of pain, tingling, numbness in arms. MRI showing multilevel disease previou s pt of [facility] Referral Organization [facility] Referring Provider First Name Areli Referring Provider Last Name Asia Referring Provider Specialty Family Medicine Referring Provider Referring Provider email [email or web address] Referred Provider [facility],Orthopedics Referred Provider Specialty Orthopedic Surgery Referral Appointment Date 2021-04-14 FUNCTIONAL STATUS PLAN OF CARE Activity Details Follow Up 6 Months Reason:BP check Future Appointment Provider Name:Areli richardson, 2022-04-09 08:00:00 AM, [address] , [place] , [address], Referral 2015-03-26, Left shoulder pa in, rotator cuff strain, Rehab Medicine [facility] Referral 2016-10-19, right elbow [facility] Patient wants Fridays anytime, Orthopaedics [facility] Referral 2020-02-14, Referral to P T for acute right shoulder pain s/p fall; x-ray reveals no fract ure or dislocation, but does show DJD w/ inflammation. Please joy shaheed recent x-ray in referral docs. Thanks! Please contact our office within 7 days to notify [facility] of scheduled appointment Referral 2020-04-09, Patient requesti abena referral to [facility] for chronic pain in bilateral shoulders (history of rotator cuff disorder in jenny ateral shoulders) with radiating pain and numbness down bilateral arms Please contact our office within 7 days to notify [facility] of scheduled appointment Referral 2020-05-16, Referral to [facility]ascular for consult regarding newly diagnosed 3.7 cm AAA in asym ptomatic patient. Please include 04/23/[address] in refe rral documentation. Thanks! Please contact our office within 7 days to notify [facility] of scheduled appointment Patient seen o n 05/16/20 Referral 2020-07-01, LMTCB 3..2020 Referral to Alonso Donahue PT at [facility] for evalu ation and treatment of chronic low back pain Please contact o ur office within 7 days to notify [facility] of scheduled appointment Referral 10.07.21 NOT YET SCHEDULED P S; REFAXED TO [facility] PCL 02/02/2021 PS 70 y/o female with family hi story of renal disease, significant decreased GFR and increasing CR without identifiable reason, please eval. Please contac t our office within 7 days to notify [facility] of scheduled appointmegha chong, [facility] Referral 2021-04-14, 04/14/21 @ 930AM with [facility]/70 yo female with hx of cervical disc disease, no w with worsened symptoms of pain, tingling, numbness in arms. MRI showing multilevel disease previous pt of [facility], [facility] [facility] Future Test MRI Cervical Spine 20210324 Future Test Xray Cervical Spine 20210324 Pending Test CT Chest Low Dose Lung Cance r Screening Pending Test COLOGUARD FITDNA VITAL SIGNS Temperature 97.2 degrees Fahrenheit 2021-10-09 Heart Rate 55 BPM 2021-10-09 Respiratory Rate 16 /min 2020-01-09 Oximetry 98 % 2021-10-09 Height 60.5 in 2021-10-09 Weight 150 lbs 2021-08-07 BMI 28.81 kg/m2 2021-08-07 Blood pressure systolic 134 mmHg 2021-10-09 Blood pressure diastolic 66 mmHg 2021-10-09 MEDICATIONS Medication Instructions Dosage Frequency Start End Duration Statu s Date Date Multivitamins Orally Once 1 Tablet 24h Activ e Daily Fish Oil 500 MG Orally Twice a 1 capsule 12h Active day Aspirin 81 81 MG Orally Once a 1 tablet 24h 16 May, 90 days Active day 2020 Calcium + D Orally Once a 1/2 tablet Act beth 600-200 MG-UNIT day prn with food Diclofenac Sodium TAKE ONE Activ e ER 100 MG TABLET BY MOUTH EVERY DAY NEEDED Pregabalin 100 MG Orally Once a 1 capsule Active day at bedtime for pain Lisinopril 10 MG TAKE ONE Active TABLET BY MOUTH EVERY DAY Atorvastatin TAKE ONE Active Calcium 40 MG TABLET BY MOUTH EVERY DAY Levothyroxine TAKE ONE Active Sodium 75 MCG TABLET BY MOUTH EVERY MORNING ON AN EMPTY STOMACH PROCEDURES Procedure Date Ordered Result Body Site ADMN PNEUM VACCINE Jan 30, 2021 VENIPUNCTURE IH October 15, 2011 IMMUNIZATION ADMIN June 07, 2014 TD 7 and Up [facility] [id number] September 05, 2018 IMMUNIZATION ADMIN Feb 11, 2016 VENIPUNCTURE Mar 23, 2019 PHYSICAL MEDICINE PROCEDURE August 11, 2018 URINE-NO MICRO (Urine Dip Stick) Nov 08, 2014 IMMUNIZATION ADMIN Mar 14, 2013 Mat Puncher Phone Consultation September 30, 2017 ZOSTER VACC, [place] June 07, 2014 VENIPUNCT, ROUTINE June 18, 2015 VENIPUNCTURE Dec 20, 2014 FQ VISIT ESTABLISHED PATIENT August 11, 2020 VENIPUNCT, ROUTINE* () Mar 30, 2013 VENIPUNCTURE July 18, 2013 FQ VISIT ESTABLISHED PATIENT Jan 19, 2021 INFLUENZA-Adults ([facility] PURCHASED) Jan 20, 2012 VENIPUNCTURE Mar 21, 2015 FQ VISIT ESTABLISHED PATIENT September 22, 2018 Mat Puncher Face to Face visit October 23, 2018 FQ VISIT ESTABLISHED PATIENT Jan 09, 2020 Mat Puncher Face to Face visit October 16, 2018 Fluzone High-Dose over age 65 Dec 30, 2017 BLOOD PRESSURE MEASURED 2017-09-30 N/A VENIPUNCTURE October 14, 2017 FQ VISIT ESTABLISHED PATIENT Mar 23, 2019 BLOOD PRESSURE MEASURED 2017-10-07 N/A INFLUENZA 18 YRS TO 64 YRS OLD-STATE SUPPLIED Jan 13, 2017 FQ VISIT ESTABLISHED PATIENT August 07, 2021 BLOOD PRESSURE MEASURED 2018-08-25 N/A VENIPUNCTURE Nov 19, 2016 VENIPUNCTURE Nov 24, 2018 SPECIMEN HANDLING June 21, 2018 SPECIMEN HANDLING June 12, 2018 VENIPUNCTURE May 05, 2018 Prevnar PCV 13 Adult 65+ Purchased [id number] August 11, 2018 IMMUNIZATION ADMIN September 05, 2018 ADMN PNEUM VACCINE August 11, 2018 VENIPUNCTURE IH June 07, 2014 IMMUNIZATION ADMIN August 11, 2018 VENIPUNCTURE IH August 11, 2018 First Vaccine admin any route up to age 18 September 05, 2018 [facility] VISIT ESTABLISHED PATIENT May 20, 2020 [facility] VISIT ESTABLISHED PATIENT September 05, 2018 [facility] VISIT ESTABLISHED PATIENT Jan 23, 2020 ELECTROCARDIOGRAM REPORT Feb 21, 2017 ELECTROCARDIOGRAM, TRACING Feb 21, 2017 Mat Puncher Phone Consultation Mar 25, 2021 Mat Puncher Face to Face visit Apr 23, 2020 Mat Puncher Phone Consultation Apr 14, 2020 Mat Puncher Phone Consultation September 22, 2018 PHYSICAL MEDICINE PROCEDURE Jan 06, 2021 Mat Puncher Phone Consultation September 14, 2021 FLU VACCINE Dec 19, 2019 Mat Puncher Phone Consultation Feb 06, 2019 INFLUENZA-Adults ([facility] PURCHASED) Apr 10, 2014 VENIPUNCTURE IH July 31, 2014 IMMUNIZATION ADMIN Jan 03, 2015 INFLUENZA-Adults ([facility] PURCHASED) Mar 14, 2013 IMMUNIZATION ADMIN Apr 10, 2014 URINE-NO MICRO (Urine Dip Stick) October 15, 2011 ADMN FLU VACCINE Dec 19, 2019 VENIPUNCTURE IH September 16, 2017 VENIPUNCTURE IH June 18, 2016 BLOOD PRESSURE MEASURED 2019-11-13 N/A GET UP AND GO TEST 2021-01-06 Passed VENIPUNCTURE IH September 11, 2021 INFLUENZA-Adults ([facility] PURCHASED) Feb 11, 2016 PNEUMOCOCCAL VACCINE (23) Adult Jan 30, 2021 VENIPUNCTURE IH September 24, 2016 SPECIMEN HANDLING Jan 03, 2019 VENIPUNCTURE IH Feb 16, 2017 VENIPUNCTURE IH Nov 06, 2019 [facility] VISIT ESTABLISHED PATIENT Feb 10, 2018 SPECIMEN HANDLING June 17, 2014 INFLUENZA-Adults ([facility] PURCHASED) Jan 03, 2015 FQ VISIT ESTABLISHED PATIENT Apr 07, 2021 FQ VISIT ESTABLISHED PATIENT Mar 24, 2021 FQ VISIT ESTABLISHED PATIENT September 22, 2018 IMMUNIZATION ADMIN Jan 13, 2017 IMMUNIZATION ADMIN Jan 20, 2012 RESULTS Name Result Date Reference Range [facility] 2021-09-11 GLUCOSE 94 65-99 UREA NITROGEN (BUN) 32 7-25 CREATININE 1.05 0.50-0.99 SODIUM 139 135-146 POTASSIUM 4.9 3.5-5.3 CHLORIDE 107 98-110 CALCIUM 9.5 8.6-10.4 PROTEIN, TOTAL 6.5 6.1-8.1 ALBUMIN 4.2 3.6-5.1 GLOBULIN 2.3 1.9-3.7 ALBUMIN/GLOBULIN RATIO 1.8 1.0-2.5 BILIRUBIN, TOTAL 0.4 0.2-1.2 ALKALINE PHOSPHATASE 85 37-153 AST 26 10-35 ALT 26 6-29 eGFR NON-AFR. [place] 55 > OR = 60 eGFR 63 > OR = 60 CARBON DIOXIDE 22 20-32 GLOBULIN 2.3 1.9-3.7 BUN/CREATININE RATIO 30 6-22 TSH WITH REFLEX 2021-09-11 TSH W/REFLEX TO FT4 2.88 0.40-4.50 LIPID PANEL 2021-09-11 TRIGLYCERIDES 159 <150 CHOLESTEROL, TOTAL 164 <200 HDL CHOLESTEROL 56 > OR = 50 LDL-CHOLESTEROL 82 CHOL/HDLC RATIO 2.9 <5.0 NON HDL CHOLESTEROL 108 <130 CHOLESTEROL, TOTAL 164 <200 Echocardiogram 2021-09-18 Ejection Fraction % Ultrasound Kidneys 2021-01-20 CMP 2021-01-06 GLUCOSE 81 65-99 UREA NITROGEN (BUN) 30 7-25 CREATININE 1.79 0.50-0.99 SODIUM 137 135-146 POTASSIUM 4.7 3.5-5.3 CHLORIDE 104 98-110 CALCIUM 9.4 8.6-10.4 PROTEIN, TOTAL 6.6 6.1-8.1 ALBUMIN 4.3 3.6-5.1 GLOBULIN 2.3 1.9-3.7 ALBUMIN/GLOBULIN RATIO 1.9 1.0-2.5 BILIRUBIN, TOTAL 0.9 0.2-1.2 ALKALINE PHOSPHATASE 95 37-153 AST 22 10-35 ALT 20 6-29 eGFR NON-AFR. [place] 29 > OR = 60 eGFR 33 > OR = 60 CARBON DIOXIDE 22 20-32 GLOBULIN 2.3 1.9-3.7 BUN/CREATININE RATIO 17 6-22 TSH WITH REFLEX 2021-01-06 TSH W/REFLEX TO FT4 2.99 0.40-4.50 CBC WITH DIFF 2021-01-06 HEMOGLOBIN 12.0 11.7-15.5 HEMATOCRIT 36.0 35.0-45.0 MCH 31.0 27.0-33.0 MCHC 33.3 32.0-36.0 RDW 12.3 11.0-15.0 NEUTROPHILS 51.2 ABSOLUTE NEUTROPHILS 3584 1942-9095 LYMPHOCYTES 38.8 ABSOLUTE LYMPHOCYTES 2716 850-3900 MONOCYTES 7.8 ABSOLUTE MONOCYTES 546 200-950 EOSINOPHILS 1.6 ABSOLUTE EOSINOPHILS 112 15-500 BASOPHILS 0.6 ABSOLUTE BASOPHILS 42 0-200 MPV 10.5 7.5-12.5 WHITE BLOOD CELL COUNT 7.0 3.8-10.8 RED BLOOD CELL COUNT 3.87 3.80-5.10 MCV 93.0 80.0-100.0 PLATELET COUNT 245 140-400 LIPID PANEL 2021-01-06 TRIGLYCERIDES 139 <150 CHOLESTEROL, TOTAL 136 <200 HDL CHOLESTEROL 51 > OR = 50 LDL-CHOLESTEROL 63 CHOL/HDLC RATIO 2.7 <5.0 NON HDL CHOLESTEROL 85 <130 CHOLESTEROL, TOTAL 136 <200 VITAMIN B12 2021-01-06 VITAMIN B12 [phone] VITAMIN D 25 OH TOTAL IA 2021-01-06 VITAMIN D,25-OH,TOTAL,IA 32 30-100 MAMMOGRAM 2020-12-11 Results: Birads 1 CT Abdomen and Pelvis With Contrast RESULTS: NOTES: Xray LS Spine Results: Xray Hip Right Xray Shoulder Right CMP 2019-11-06 GLUCOSE 88 65-99 UREA NITROGEN (BUN) 16 7-25 CREATININE 0.85 0.50-0.99 SODIUM 141 135-146 POTASSIUM 4.8 3.5-5.3 CHLORIDE 106 98-110 CALCIUM 9.6 8.6-10.4 PROTEIN, TOTAL 6.8 6.1-8.1 ALBUMIN 4.4 3.6-5.1 GLOBULIN 2.4 1.9-3.7 ALBUMIN/GLOBULIN RATIO 1.8 1.0-2.5 BILIRUBIN, TOTAL 0.5 0.2-1.2 ALKALINE PHOSPHATASE 66 37-153 AST 22 10-35 ALT 27 6-29 eGFR NON-AFR. [place] 71 > OR = 60 eGFR 83 > OR = 60 CARBON DIOXIDE 23 20-32 GLOBULIN 2.4 1.9-3.7 BUN/CREATININE RATIO NOT APPLICABLE 6-22 TSH WITH REFLEX 2019-11-06 TSH W/REFLEX TO FT4 1.51 0.40-4.50 LIPID PANEL 2019-11-06 TRIGLYCERIDES 180 <150 CHOLESTEROL, TOTAL 189 <200 HDL CHOLESTEROL 66 > OR = 50 LDL-CHOLESTEROL 95 CHOL/HDLC RATIO 2.9 <5.0 NON HDL CHOLESTEROL 123 <130 CHOLESTEROL, TOTAL 189 <200 MAMMOGRAM Results: Birads 1 CMP 2019-03-23 GLUCOSE 103 65-99 UREA NITROGEN (BUN) 21 7-25 CREATININE 0.92 0.50-0.99 SODIUM 139 135-146 POTASSIUM 4.7 3.5-5.3 CHLORIDE 106 98-110 CALCIUM 9.4 8.6-10.4 PROTEIN, TOTAL 6.7 6.1-8.1 ALBUMIN 4.5 3.6-5.1 GLOBULIN 2.2 1.9-3.7 ALBUMIN/GLOBULIN RATIO 2.0 1.0-2.5 BILIRUBIN, TOTAL 0.5 0.2-1.2 ALKALINE PHOSPHATASE 66 33-130 AST 23 10-35 ALT 24 6-29 eGFR NON-AFR. [place] 65 > OR = 60 eGFR 75 > OR = 60 CARBON DIOXIDE 23 20-32 GLOBULIN 2.2 1.9-3.7 BUN/CREATININE RATIO NOT APPLICABLE 09-23 LIPID PANEL 2019-03-23 TRIGLYCERIDES 136 <150 CHOLESTEROL, TOTAL 200 <200 HDL CHOLESTEROL 64 >50 LDL-CHOLESTEROL 111 CHOL/HDLC RATIO 3.1 <5.0 NON HDL CHOLESTEROL 136 <130 CHOLESTEROL, TOTAL 200 <200 FECAL GLOBIN BY IMMUNOCHEM MEDICARE FIT FECAL GLOBIN BY IMMUNOCHEM. (MEDICARE) SEE NOTE TSH WITH REFLEX 2018-11-24 TSH W/REFLEX TO FT4 2.01 0.40-4.50 CMP 2018-08-11 GLUCOSE 105 65-99 UREA NITROGEN (BUN) 17 7-25 CREATININE 0.85 0.50-0.99 SODIUM 141 135-146 POTASSIUM 4.5 3.5-5.3 CHLORIDE 108 98-110 CALCIUM 9.3 8.6-10.4 PROTEIN, TOTAL 6.4 6.1-8.1 ALBUMIN 4.4 3.6-5.1 GLOBULIN 2.0 1.9-3.7 ALBUMIN/GLOBULIN RATIO 2.2 1.0-2.5 BILIRUBIN, TOTAL 0.6 0.2-1.2 ALKALINE PHOSPHATASE 65 33-130 AST 21 10-35 ALT 22 6-29 eGFR NON-AFR. [place] 72 > OR = 60 eGFR 83 > OR = 60 CARBON DIOXIDE 23 20-32 GLOBULIN 2.0 1.9-3.7 BUN/CREATININE RATIO NOT APPLICABLE 09-23 LIPID PANEL 2018-08-11 TRIGLYCERIDES 164 <150 CHOLESTEROL, TOTAL 187 <200 HDL CHOLESTEROL 63 >50 LDL-CHOLESTEROL 98 CHOL/HDLC RATIO 3.0 <5.0 NON HDL CHOLESTEROL 124 <130 CHOLESTEROL, TOTAL 187 <200 TSH THYROID STIMULATING HORMONE 2018-08-11 TSH 1.95 0.40-4.50 FECAL GLOBIN BY IMMUNOCHEM MEDICARE FIT FECAL GLOBIN BY IMMUNOCHEM. (MEDICARE) FECAL GLOBIN BY IMMUNOCHEM MEDICARE FIT FECAL GLOBIN BY IMMUNOCHEM. (MEDICARE) MAMMOGRAM 2018-06-02 Results: Birads 1 TSH WITH REFLEX 2018-05-05 TSH W/REFLEX TO FT4 1.11 0.40-4.50 Mammogram Right Breast Results: [facility] 2017-10-14 GLUCOSE 108 65-99 CREATININE 0.88 0.50-0.99 eGFR NON-AFR. [place] 69 > OR = 60 eGFR 80 > OR = 60 UREA NITROGEN (BUN) 22 7-25 SODIUM 139 135-146 POTASSIUM 4.8 3.5-5.3 CHLORIDE 107 98-110 CARBON DIOXIDE 24 20-31 CALCIUM 9.0 8.6-10.4 BUN/CREATININE RATIO NOT APPLICABLE - CMP 2017-09-16 GLUCOSE 106 65-99 UREA NITROGEN (BUN) 20 7-25 CREATININE 0.88 0.50-0.99 SODIUM 142 135-146 POTASSIUM 4.5 3.5-5.3 CHLORIDE 108 98-110 CALCIUM 9.3 8.6-10.4 PROTEIN, TOTAL 6.6 6.1-8.1 ALBUMIN 4.5 3.6-5.1 GLOBULIN 2.1 1.9-3.7 ALBUMIN/GLOBULIN RATIO 2.1 1.0-2.5 BILIRUBIN, TOTAL 0.4 0.2-1.2 ALKALINE PHOSPHATASE 71 33-130 AST 25 10-35 ALT 25 6-29 eGFR NON-AFR. [place] 69 > OR = 60 eGFR 80 > OR = 60 CARBON DIOXIDE 21 20-31 GLOBULIN 2.1 1.9-3.7 BUN/CREATININE RATIO NOT APPLICABLE 09-23 TSH WITH REFLEX 2017-09-16 TSH W/REFLEX TO FT4 1.29 0.40-4.50 LIPID PANEL 2017-09-16 TRIGLYCERIDES 108 <150 CHOLESTEROL, TOTAL 177 <200 HDL CHOLESTEROL 61 >50 LDL-CHOLESTEROL 96 CHOL/HDLC RATIO 2.9 <5.0 NON HDL CHOLESTEROL 116 <130 CHOLESTEROL, TOTAL 177 <200 HEPATITIS C ANTIBODY /WITH REFLEX TO HCV 2017-09 RNA QUANTITATIVE REAL TIME PCR HEPATITIS C ANTIBODY NON-REACTIVE NON-REACTIV E SIGNAL TO CUT-OFF 0.01 <1.00 MAMMOGRAM 2017-04-22 Results: BIRADS 1 TSH WITH REFLEX 2017-02-16 TSH W/REFLEX TO FT4 1.16 0.40-4.50 TSH WITH REFLEX 2016-11-19 TSH W/REFLEX TO FT4 1.74 0.40-4.50 TSH WITH REFLEX 2016-09-24 TSH W/REFLEX TO FT4 4.77 0.40-4.50 T4, FREE 1.2 0.8-1.8 CMP 2016-06-18 GLUCOSE 111 65-99 UREA NITROGEN (BUN) 18 7-25 CREATININE 0.96 0.50-0.99 SODIUM 143 135-146 POTASSIUM 4.6 3.5-5.3 CHLORIDE 110 98-110 CALCIUM 9.3 8.6-10.4 PROTEIN, TOTAL 6.6 6.1-8.1 ALBUMIN 4.5 3.6-5.1 GLOBULIN 2.1 1.9-3.7 ALBUMIN/GLOBULIN RATIO 2.1 1.0-2.5 BILIRUBIN, TOTAL 0.5 0.2-1.2 ALKALINE PHOSPHATASE 66 33-130 AST 23 10-35 ALT 25 6-29 eGFR NON-AFR. [place] 63 > OR = 60 eGFR 73 > OR = 60 CARBON DIOXIDE 23 20-31 GLOBULIN 2.1 1.9-3.7 BUN/CREATININE RATIO NOT APPLICABLE - TSH WITH REFLEX 2016-06-18 TSH W/REFLEX TO FT4 3.22 0.40-4.50 LIPID PANEL 2016-06-18 TRIGLYCERIDES 107 <150 CHOLESTEROL, TOTAL 173 125-200 HDL CHOLESTEROL 61 > OR = 46 LDL-CHOLESTEROL 91 <130 CHOL/HDLC RATIO 2.8 < OR = 5.0 NON HDL CHOLESTEROL 112 CHOLESTEROL, TOTAL 173 125-200 THINPREP PAP AND HPV mRNA E6 E7 with 2016-06-18 imaging CLINICAL INFORMATION: CERVICAL LMP: CERVICAL PREV. PAP: CERVICAL PREV. BX: CERVICAL SOURCE: Cervix STATEMENT OF ADEQUACY: INTERPRETATION/RESULT: COMMENT: WATER PUMPER: HPV mRNA E6/E7 Not Detected Not Detected REVIEW WATER PUMPER: MAMMOGRAM 2016-03-19 Results: BIRADS 1 MAMMOGRAM 2016-03-19 Results: Bairads 1 CMP 2015-06-18 GLUCOSE 111 65-99 UREA NITROGEN (BUN) 14 7-25 CREATININE 0.90 0.50-0.99 SODIUM 138 135-146 POTASSIUM 4.5 3.5-5.3 CHLORIDE 107 98-110 CALCIUM 9.6 8.6-10.4 PROTEIN, TOTAL 6.7 6.1-8.1 ALBUMIN 4.5 3.6-5.1 GLOBULIN 2.2 1.9-3.7 ALBUMIN/GLOBULIN RATIO 2.0 1.0-2.5 BILIRUBIN, TOTAL 0.7 0.2-1.2 ALKALINE PHOSPHATASE 67 33-130 AST 35 10-35 ALT 46 6-29 eGFR NON-AFR. [place] 69 > OR = 60 eGFR 79 > OR = 60 CARBON DIOXIDE 22 19-30 GLOBULIN 2.2 1.9-3.7 BUN/CREATININE RATIO NOT APPLICABLE -22 TSH WITH REFLEX 2015-06-18 TSH W/REFLEX TO FT4 2.75 0.40-4.50 LIPID PANEL 2015-06-18 TRIGLYCERIDES 186 <150 CHOLESTEROL, TOTAL 190 125-200 HDL CHOLESTEROL 53 > OR = 46 LDL-CHOLESTEROL 100 <130 CHOL/HDLC RATIO 3.6 < OR = 5.0 NON HDL CHOLESTEROL 137 CHOLESTEROL, TOTAL 190 125-200 TSH WITH REFLEX 2015-03-21 TSH W/REFLEX TO FT4 1.93 0.40-4.50 MAMMOGRAM 2015-02-21 Results: Bairids 1 TSH WITH REFLEX 2014-12-20 TSH W/REFLEX TO FT4 1.88 0.40-4.50 URINE DIP IH 2014-11-08 Microscopic Examination Urine-Color Yello Appearance cloudy Specific Indian 1.015 pH 5 Glucose neg Protein trace Occult Blood neg Bilirubin neg Urobilinogen,Semi-Qn neg Nitrite, Urine + Ketones neg Leukocyte esterase + HCG Urinalysis Gross Exam TSH WITH REFLEX 2014-11-08 TSH W/REFLEX TO FT4 TNP URINE CULTURE ROUTINE 2014-11-08 CULTURE, URINE, ROUTINE SEE NOTE TSH WITH REFLEX 2014-07-31 TSH W/REFLEX TO FT4 2.40 0.40-4.50 FECAL GLOBIN BY IMMUNOCHEMISTRY FIT 2014-06-17 FECAL GLOBIN BY IMMUNOCHEMISTRY SEE NOTE CMP 2014-06-07 GLUCOSE 100 65-99 UREA NITROGEN (BUN) 16 7-25 CREATININE 0.92 0.50-0.99 SODIUM 140 135-146 POTASSIUM 4.1 3.5-5.3 CHLORIDE 107 98-110 CALCIUM 9.7 8.6-10.4 PROTEIN, TOTAL 6.8 6.1-8.1 ALBUMIN 4.6 3.6-5.1 GLOBULIN 2.2 1.9-3.7 ALBUMIN/GLOBULIN RATIO 2.1 1.0-2.5 BILIRUBIN, TOTAL 0.5 0.2-1.2 ALKALINE PHOSPHATASE 79 33-130 AST 28 10-35 ALT 39 6-29 eGFR NON-AFR. [place] 67 > OR = 60 eGFR 78 > OR = 60 CARBON DIOXIDE 22 19-30 GLOBULIN 2.2 1.9-3.7 BUN/CREATININE RATIO NOT APPLICABLE 09-23 LIPID PANEL WITH REFLEX TO DIRECT LDL 2014-06-07 TRIGLYCERIDES 248 <150 CHOLESTEROL, TOTAL 170 125-200 HDL CHOLESTEROL 55 > OR = 46 LDL-CHOLESTEROL 65 <130 CHOL/HDLC RATIO 3.1 < OR = 5.0 NON HDL CHOLESTEROL 115 TSH WITH REFLEX 2014-06-07 TSH W/REFLEX TO FT4 4.94 0.40-4.50 T4, FREE 1.0 0.8-1.8 CBC WITH DIFF 2014-06-07 HEMOGLOBIN 13.7 11.7-15.5 HEMATOCRIT 41.9 35.0-45.0 MCH 31.7 27.0-33.0 MCHC 32.6 32.0-36.0 RDW 12.8 11.0-15.0 NEUTROPHILS 60.4 ABSOLUTE NEUTROPHILS 4288 4069-3440 LYMPHOCYTES 31.0 ABSOLUTE LYMPHOCYTES 2201 850-3900 MONOCYTES 6.4 ABSOLUTE MONOCYTES 454 200-950 EOSINOPHILS 1.7 ABSOLUTE EOSINOPHILS 121 15-500 BASOPHILS 0.5 ABSOLUTE BASOPHILS 36 0-200 MPV 9.7 7.5-11.5 WHITE BLOOD CELL COUNT 7.1 3.8-10.8 RED BLOOD CELL COUNT 4.31 3.80-5.10 MCV 97.2 80.0-100.0 PLATELET COUNT 181 140-400 MAMMOGRAM Results: TSH WITH REFLEX 2013-07-18 TSH W/REFLEX TO FT4 4.38 0.40-4.50 CMP 2013-03-30 GLUCOSE 120 65-99 UREA NITROGEN (BUN) 23 7-25 CREATININE 0.89 0.50-0.99 SODIUM 139 135-146 POTASSIUM 4.8 3.5-5.3 CHLORIDE 105 98-110 CALCIUM 9.6 8.6-10.4 PROTEIN, TOTAL 7.1 6.1-8.1 ALBUMIN 4.8 3.6-5.1 GLOBULIN 2.3 1.9-3.7 ALBUMIN/GLOBULIN RATIO 2.1 1.0-2.5 BILIRUBIN, TOTAL 0.5 0.2-1.2 ALKALINE PHOSPHATASE 72 33-130 AST 30 10-35 ALT 32 6-29 eGFR NON-AFR. [place] 70 > OR = 60 eGFR 82 > OR = 60 CARBON DIOXIDE 24 19-30 GLOBULIN 2.3 1.9-3.7 BUN/CREATININE RATIO NOT APPLICABLE 6- TSH WITH REFLEX 2013-03-30 TSH W/REFLEX TO FT4 9.70 0.40-4.50 T4, FREE 0.9 0.8-1.8 CBC WITH DIFF 2013-03-30 HEMOGLOBIN 14.1 11.7-15.5 HEMATOCRIT 41.9 35.0-45.0 MCH 32.3 27.0-33.0 MCHC 33.7 32.0-36.0 RDW 12.5 11.0-15.0 NEUTROPHILS 51.7 ABSOLUTE NEUTROPHILS 2533 1661-5667 LYMPHOCYTES 37.2 ABSOLUTE LYMPHOCYTES 3770 352-1890 MONOCYTES 6.9 ABSOLUTE MONOCYTES 338 200-950 EOSINOPHILS 3.1 ABSOLUTE EOSINOPHILS 152 15-500 BASOPHILS 1.1 ABSOLUTE BASOPHILS 54 0-200 MPV 9.5 7.5-11.5 WHITE BLOOD CELL COUNT 4.9 3.8-10.8 RED BLOOD CELL COUNT 4.38 3.80-5.10 MCV 95.8 80.0-100.0 PLATELET COUNT 158 140-400 LIPID PANEL 2013-03-30 TRIGLYCERIDES 318 <150 CHOLESTEROL, TOTAL 251 125-200 HDL CHOLESTEROL 55 > OR = 46 LDL-CHOLESTEROL 132 <130 CHOL/HDLC RATIO 4.6 < OR = 5.0 NON HDL CHOLESTEROL 196 CHOLESTEROL, TOTAL 251 125-200 MAMMOGRAM Results: Mammogram Left Breast Results: Xray Cervical Spine Results: URINE DIP IH Microscopic Examination Urine-Color yellow Appearance clear Specific Indian 1.015 pH 6 Glucose normal Protein neg Occult Blood neg Bilirubin neg Urobilinogen,Semi-Qn normal Nitrite, Urine neg Ketones neg Leukocyte esterase neg HCG Urinalysis Gross Exam CMP 2011-10-15 GLUCOSE 88 65-99 UREA NITROGEN (BUN) 12 7-25 CREATININE 0.87 0.50-1.05 SODIUM 143 135-146 POTASSIUM 4.8 3.5-5.3 CHLORIDE 106 98-110 CALCIUM 9.6 8.6-10.4 PROTEIN, TOTAL 7.2 6.2-8.3 ALBUMIN 4.9 3.6-5.1 GLOBULIN 2.3 2.2-3.9 ALBUMIN/GLOBULIN RATIO 2.1 1.0-2.1 BILIRUBIN, TOTAL 0.6 0.2-1.2 ALKALINE PHOSPHATASE 62 33-130 AST 26 10-35 ALT 19 6-40 eGFR NON-AFR. [place] 73 > OR = 60 eGFR 85 > OR = 60 CARBON DIOXIDE 24 21-33 GLOBULIN 2.3 2.2-3.9 BUN/CREATININE RATIO NOT APPLICABLE 09-23 LIPID PANEL WITH REFLEX TO DIRECT LDL 2011-10-15 TRIGLYCERIDES 100 <150 CHOLESTEROL, TOTAL 204 125-200 HDL CHOLESTEROL 85 > OR = 46 LDL-CHOLESTEROL 99 <130 CHOL/HDLC RATIO 2.4 < OR = 5.0 NON-HDL CHOLESTEROL 119 PAP SMEAR THINPREP WITH HR HPV DNA 2011-10-15 HPV DNA (HIGH RISK) NOT DETECTED NOT DETECTED SOURCE: Cervix CLINICAL INFORMATION: LMP: NONE GIVEN PREV. PAP: NORMAL PAP PREV. BX: NONE GIVEN STATEMENT OF ADEQUACY: INTERPRETATION/RESULT: COMMENT: WATER PUMPER: REVIEW WATER PUMPER: CBC WITH DIFF 2011-10-15 HEMOGLOBIN 14.1 11.7-15.5 HEMATOCRIT 41.8 35.0-45.0 MCH 33.4 27.0-33.0 MCHC 33.8 32.0-36.0 RDW 13.0 11.0-15.0 NEUTROPHILS 49.2 ABSOLUTE NEUTROPHILS 2411 6299-7551 LYMPHOCYTES 38.6 ABSOLUTE LYMPHOCYTES 1819 192-6137 MONOCYTES 7.9 ABSOLUTE MONOCYTES 387 200-950 EOSINOPHILS 3.8 ABSOLUTE EOSINOPHILS 186 15-500 BASOPHILS 0.5 ABSOLUTE BASOPHILS 25 0-200 MPV 9.5 7.5-11.5 WHITE BLOOD CELL COUNT 4.9 3.8-10.8 RED BLOOD CELL COUNT 4.23 3.80-5.10 MCV 98.8 80.0-100.0 PLATELET COUNT 180 140-400 TSH THYROID STIMULATING HORMONE 2011-10-15 TSH 2.51 0.40-4.50 MAMMOGRAM Results: MAMMOGRAM Results: REASON FOR VISIT Insurance Providers [facility] Member Patient Patient Patient Patient Patient Subscriber Subscriber Subscriber Group Insurance Plan Plan Plan Plan ID Relationship Address Phone Name Date of ID Name Date of No Type Insurance Insurance Insurance Coverage to Subscriber Address Phone Name Dates MEDICARE [phone] MEDICARE self Selin [id number] [facility] [address] [facility] [id number] [place] [phone] [place] self [place] [id number] [phone] MEDICAL (GENERAL) HISTORY Type Description Date Medical History postmenopausal- age 38 Medical History a-c joint strain Medical History Hypercalcemia Medical History Cataract of both eyes, unspecified catar act type Medical History Steatosis Medical History Acquired hypothyroidism Medical History Essential hypertension Medical History Mixed hyperlipidemia Medical History DDD (degenerative disc disease), cervica l Medical History Family history of breast cancer in first degree relative Surgical History Intestinal hernia 1978 Surgical History Surgery on elbow and wrist for tendoniti s 1993 Hospitalization History No Hospitalization history informati on
--- NOTE | 2021-10-30 12:47 | DI.CTLCSR_ITS ---
Exam(s) CT CHEST LUNG CANCER SCREEN EXAM: CT CHEST LUNG CANCER SCREEN CLINICAL HISTORY: FORMER SMOKER Z87.891, SCREENING FOR LUNG CANCER TECHNIQUE: Imaging Protocol: Axial computed tomography images with coronal and sagittal reformatted images were created and reviewed COMPARISON: No exams were available for comparison FINDINGS: Tracheobronchial tree: Patent where visualized. Pulmonary parenchyma: No consolidation or dominant measurable mass. Moderate emphysematous changes ar e present. Lung Nodules: There is a 3.7 mm nodule in the left upper lobe. There are few tiny subpleural smaller nodules present. Mediastinum and Jaky: No dominant adenopathy or fluid collection. The esophagus is unremarkable. Thyroid gland: Unremarkable. Lymph nodes: Unremarkable. Pleura: No effusion or pneumothorax. Heart: The heart is not dilated. Coronary artery calcifications are present. No pericardial effusion . Aorta: Thoracic aorta non-dilated.Atherosclerosis is present. Upper abdomen: There is fatty infiltration of the liver. Soft Tissues: Unremarkable. Bones: Within normal limits. IMPRESSION: 3.7 mm nodule in the left upper lobe. Lung RADS Cat 2 - Benign Appearance / Behavior: Nodules with a very low likelihood of becoming a clin ically active cancer due to size or lack of growth Lung-RADS 1.0 CATEGORIES: Category 0 - Prior chest CT exam(s) being located for comparison. Category 1 - Annual screening in 12 months. No nodules or definitely benign nodules. Category 2 - Annual screening in 12 months. Benign appearance. Nodules with low likelihood of becomin g active cancer. Category 3 - 6-month follow-up. Probably benign. Short-term follow-up suggested. Nodules with low lik elihood of becoming active cancer. Category 4A - 3-month follow-up and CT/PET if >8 mm in size. Suspicious finding. Findings which requi re additional testing. Category 4B - Findings which require additional testing and tissue sampling. Suspicious finding. Category 4X - Category 3 or 4 nodules with additional features or imaging findings that increases the suspicion of malignancy. Modifier S- Potentially clinically significant finding. (Non lung cancer) RADIATION DOSE DELIVERED: 69.95mGy.cm Total DLP 1.84mGy CTDIvol 69.95mGy.cm Total DLP 1.84mGy CTDIvol DATA REPOSITORY: All CT scans at this facility are submitted to the National Radiology Data Registry (NRDR) Dose Index Registry (DIR) with the [employer] ([employer]). RADIATION OPTIMIZATION: All CT scans at this facility use at least one of these dose optimization te chniques: automated exposure control; mA and/or kV adjustment per patient size (includes targeted exa ms where dose is matched to clinical indication); or iterative reconstruction.
== END ==
PROVIDERS: PCP Nurse Practitioner Family; Visit Provider Nurse Practitioner Primary Care
DX: Z12.2 Encounter for screening for malignant neoplasm of respiratory organs (principal); R91.8 Other nonspecific abnormal finding of lung field; Z87.891 Personal history of nicotine dependence
CPT/HCPCS: 71271